=== PATIENT | male | born 1950 | race Two or more races ===

== ENCOUNTER 2020-03-04 16:44 | Outpatient (REF) | payer OTHER, SELFPAY | END 2020-03-04 16:45 | disposition home or self-care (01) | LOC: HO.LAB 16:44 | PROVIDERS: Visit Provider Internal Medicine | DX: Z20.822 Contact with and (suspected) exposure to COVID-19 (principal) | CPT/HCPCS: 36415; C9803; U0003 ==

== ENCOUNTER 2020-05-06 08:58 | Outpatient (REF) | payer OTHER, SELFPAY | END 2020-05-06 08:59 | disposition home or self-care (01) | LOC: HO.LAB 08:58 | PROVIDERS: Visit Provider Internal Medicine | DX: Z20.822 Contact with and (suspected) exposure to COVID-19 (principal) | CPT/HCPCS: 36415; C9803; U0003; U0005 ==

== ENCOUNTER 2020-05-20 09:24 | Outpatient (REF) | payer OTHER, SELFPAY ==
[2020-05-20 10:32] LABS: COVID-19 Test Negative (Negative)
== END 2020-05-20 09:25 | disposition home or self-care (01) ==
LOC: HO.LAB 09:24
PROVIDERS: Visit Provider Internal Medicine
DX: Z20.822 Contact with and (suspected) exposure to COVID-19 (principal)
CPT/HCPCS: 36415; 87635; C9803

== ENCOUNTER 2020-12-27 09:06 | Outpatient (REF) | payer OTHER, SELFPAY ==
[2020-12-27 10:01] LABS: COVID-19 Test Negative (Negative)
== END 2020-12-27 09:07 | disposition home or self-care (01) ==
LOC: HO.LAB 09:06
PROVIDERS: PCP Internal Medicine; Visit Provider Internal Medicine
DX: Z20.822 Contact with and (suspected) exposure to COVID-19 (principal)
CPT/HCPCS: 36415; 87635; C9803

== ENCOUNTER 2021-02-03 13:36 | Outpatient (REF) | payer OTHER, SELFPAY | END 2021-02-03 13:37 | disposition home or self-care (01) | LOC: HO.LAB 13:36 | PROVIDERS: Visit Provider Internal Medicine | DX: Z20.822 Contact with and (suspected) exposure to COVID-19 (principal) | CPT/HCPCS: C9803; U0003; U0005 ==

== ENCOUNTER → 2022-01-04 09:51 | Outpatient (BNVA) | payer OTHER, SELFPAY | PROVIDERS: PCP Internal Medicine; Visit Provider Surgery | DX: Z01.818 Encounter for other preprocedural examination (principal) | CPT/HCPCS: 99202 ==

== ENCOUNTER 2022-01-09 11:45 | Outpatient (REF) | payer OTHER, SELFPAY ==
[2022-01-09 12:30] LABS: COVID-19 Test Negative (Negative); IDNOW Serial# BCCEAD1C
== END 2022-01-09 11:46 | disposition home or self-care (01) ==
LOC: HO.LAB 11:45
PROVIDERS: Visit Provider Internal Medicine
DX: Z20.822 Contact with and (suspected) exposure to COVID-19 (principal)
CPT/HCPCS: 87635; C9803

== ENCOUNTER 2022-02-24 05:56 | Day surgery (SDC) | payer OTHER, SELFPAY ==
--- NOTE | 2022-02-23 10:17 | HO.ANESPROP2 ---
Documented by User: Parul Cerrato NP 02/23/22 10:17 HPI - Anesthesia Eval Consult details Narrative: 71yo M for Colonoscopy PMFSH Active Problems Active Problems: All Active Problems (Updated 12/08/21 @ 14:03 by Ty Major MD) Type 2 diabetes mellitus with hyperglycemia (Acute) Hypercholesterolemia (Acute) Hypertension (Acute) Colon cancer screening (Acute) Overweight (BMI 25.0-29.9) (Acute) Past Medical History Medical History History of tuberculosis Hypercholesterolemia Hypertension Type 2 diabetes mellitus with hyperglycemia Surgical History Surgical History H/O colonoscopy H/O toe surgery H/O wrist surgery History of surgery on arm Social History Social History Housing: House Alcohol intake: never Patient Tobacco Use Status: Former Tobacco user Quit Date: 1979 Tobacco use type: Cigarette Cigarette Packs Per Day: 1 Cigarettes Per Day: 20.0 Years Smoked: 14 Smoked in Last 30 Days: No e-Cigarette/Vaping Use: Never Used Second Hand Smoke Exposure: No Use of substances other than those prescribed or required for medical reasons: No Are you DNR?: No Advance Directives: No Advance Directives Information Provided: Yes Current occupational status: unemployed and retired Cognitive needs: No Hearing needs: No Vision needs: Yes Meds Allergies Allergy/AdvReac Type Severity Reaction Status Date / Time lactose [Lactose] Allergy Mild U Verified 02/24/22 06:55 Home Medications Medication Instructions Recorded Confirmed Last Taken Type glimepiride 2 mg tablet 2 mg PO DAILY 12/08/21 02/24/22 02/22/22 History simvastatin 20 mg tablet 20 mg PO QPM 12/08/21 02/24/22 Unknown History Exam Exam Date and Time: February 23, 2022 101 Assessment and Plan Assessment Anesthesia Assessment: Chart Reviewed Documented by User: Marah Verma MD 02/24/22 07:55 [facility] Past Medical History Medical History History of tuberculosis Hypercholesterolemia Hypertension Type 2 diabetes mellitus with hyperglycemia Functional capacity: independent ambulation Family History Family history of problems with anesthesia: No Surgical History Surgical History H/O colonoscopy H/O toe surgery H/O wrist surgery History of surgery on arm History of Problems with Anesthesia: No Social History Social History Housing: House Alcohol intake: never Patient Tobacco Use Status: Former Tobacco user Quit Date: 1979 Tobacco use type: Cigarette Cigarette Packs Per Day: 1 Cigarettes Per Day: 20.0 Years Smoked: 14 Smoked in Last 30 Days: No e-Cigarette/Vaping Use: Never Used Second Hand Smoke Exposure: No Use of substances other than those prescribed or required for medical reasons: No Are you DNR?: No Advance Directives: No Advance Directives Information Provided: Yes Current occupational status: unemployed and retired Cognitive needs: No Hearing needs: No Vision needs: Yes Meds Allergies Allergy/AdvReac Type Severity Reaction Status Date / Time lactose [Lactose] Allergy Mild U Verified 02/24/22 06:55 Home Medications Medication Instructions Recorded Confirmed Last Taken Type glimepiride 2 mg tablet 2 mg PO DAILY 12/08/21 02/24/22 02/22/22 History simvastatin 20 mg tablet 20 mg PO QPM 12/08/21 02/24/22 Unknown History Exam Airway Mallampati Class: II TM Dist: >3cm Neck ROM: Full Heart: RRR Lungs: CTA Assessment and Plan Final Anesthetic Review Family History of Problems with Anesthesia: No History of Problems with Anesthesia: No NPO: Yes ASA Class: II Final Preanesthetic Review: No Changes in Pt Med Stat, Meds/Allgs Chart Reviewed, Consent Obtained/Reviewed and Anes Risks/Benef Reviewed Patient Risk: Low Procedure Risk: Low Anesthetic Plan Anesthetic Plan: MAC: Disposition: Standard PACU
[2022-02-24 06:57] VITALS: BMI 26.4
[2022-02-24 07:13] VITALS: BP 134/77; PULSE 76; RESP 16; TEMP 36.6; O2SAT 99
[2022-02-24 07:14] LABS: Glucose, Whole Blood 186 mg/dL (60-115)
[2022-02-24] MEDS: Lactated Ringers 1,000 ML 100 ML IVCONT (07:14)
--- NOTE | 2022-02-24 07:18 | PC.NURSE ---
Patients dentures glued in mouth. Dr. Regan at bedside, okay with dentures going into Endo room for procedure.
--- NOTE | 2022-02-24 07:37 | MHC.SHP ---
Pre-Procedural Eval Section A Date of Service: 02/24/22 Section B Chief Complaint: screening Details of Present Illness: for screening colonoscopy, no GI complaints Relevant Family History (Specify if Yes): No Relevant Social History: None Present Medications: see Short Stay Collaborative assessment Medical History: Significant History (DM, HTN , hyperlipidemia) Allergies: Allergies Allergy/AdvReac Type Severity Reaction Status Date / Time lactose [Lactose] Allergy Mild U Verified 02/24/22 06:55 Review of Systems Sugical H&P ROS: Negative: Constitution, Cardiovascular, Respiratory, Neurological, Psychiatric, Hem-Onc, Allergic/Immunologic, Gastrointestinal, Genitourinary, Musculoskeletal, Integumentary, Endocrine and Eyes/Ears/Nose/Throat Exam Surgical H&P Exam: Normal: HEENT, Normal: Heart, Normal: Lungs, Normal: Extremities, Normal: Abdomen, Normal: Skin and Normal: Neurological Plan Diagnosis/Plan: Unchanged I have reviewed the history and physical and performed a pertinent physical examination on my patient. No changes have occurred unless specified. Time Spent With Patient Time: Total time managing care of this patient today ____ minutes.
--- NOTE | 2022-02-24 08:12 | W.PM.OPN ---
Operative Note Operative Note Date of Service: 02/24/22 Narrative: Preop diagnosis: Colon cancer screening Postop diagnosis: 1. Two small polyps, about 3 mm each, in the cecum, both removed with biopsy forceps 2. 8 mm polyp, in the rectum, moved with hot snare 3. 2 mm polyp in the rectum, removed with cold forceps 4. occasional diverticuli, transverse colon 5. prominent internal external hemorrhoids rocedure: Colonoscopy with polypectomy using cold forceps x3 and polypectomy using hot snare x1 Surgeon: Lex Marks MD The patient is a 71-year-old male referred for screening colonoscopy. Understood the technique of the procedure. He was aware of the risks, benefits, and alternatives. The patient was brought to the endoscopy suite and placed in left lateral decubitus position under monitored anesthesia care. A surgical time-out was done. A full digital rectal exam was done and this did not reveal any significant anal lesions except for prominent hemorrhoids. The tip of the Olympus colonoscope was gently introduced through the anal orifice advanced with insufflation all the way to the cecum. The cecum was intubated. The cecum was identified by visualization of the ileocecal valve as well as the appendiceal orifice. There were 2 small polyps in the cecum, both about 2 3 mm in size removed with multiple bites of the cold forceps. These were both placed in the same specimen jar. The scope was gradually withdrawn with careful examination of the entire colonic mucosa being done with scope withdrawal. There was occasional diverticuli in the transverse colon. The patient had adequate bowel prep so it was unlikely that any lesion may have been missed. The rectum was reached. There was note of an 8 mm polyp in the rectum, about 7 cm from the verge removed with hot snare. There was a small polyp, about 2-3 mm adjacent to this also removed with hot snare. Both of these were placed in the same specimen jar. There were note of internal external margins, prominent, in the anal canal. The scope was then withdrawn completely with desufflation The patient tolerated procedure well. There were no immediate complications. In view of the multiple polyps, I will probably recommend a repeat colonoscopy in the next 3-5 years.
[2022-02-24 08:19] VITALS: BP 91/59; PULSE 70; RESP 16; TEMP 36.9; O2SAT 97
[2022-02-24 08:49] VITALS: BP 120/80; PULSE 69; RESP 16; TEMP 36.5; O2SAT 98
--- NOTE | 2022-02-24 12:12 | HO.POSTANES ---
Post Anesthesia Evaluation Post Anesthesia Evaluation Vital Signs: Vital Signs Temp Pulse Resp BP Pulse Ox O2 Del Method 02/24/22 08:49 97.7 F 69 16 120/80 98 Room Air 02/24/22 08:19 98.5 F 70 16 91/59 L 97 Room Air 02/24/22 07:13 97.8 F 76 16 134/77 99 Room Air Anesthesia: Monitored Mental Status: Awake Pain Control: Satisfactory Nausea/Vomiting: None Hydration: Adequate Anesthesia-Related Issues: No Anes. Related Issues
== END 2022-02-24 10:00 | disposition home or self-care (01) ==
PROVIDERS: PCP Internal Medicine; Visit Provider Surgery
PROC: 0DJD8ZZ Inspection of Lower Intestinal Tract, Via Natural or Artificial Opening Endoscopic (ICD-10-PCS; CPT 45378; principal; 2022-02-24 07:30)
DX: Z12.11 Encounter for screening for malignant neoplasm of colon (principal); D12.0 Benign neoplasm of cecum; D12.8 Benign neoplasm of rectum; K57.30 Diverticulosis of large intestine without perforation or abscess without bleeding; K64.8 Other hemorrhoids; K64.4 Residual hemorrhoidal skin tags; I10 Essential (primary) hypertension; E78.00 Pure hypercholesterolemia, unspecified; E11.65 Type 2 diabetes mellitus with hyperglycemia; Z79.84 Long term (current) use of oral hypoglycemic drugs; Z79.899 Other long term (current) drug therapy; Z86.11 Personal history of tuberculosis; Z91.011 Allergy to milk products; Z87.891 Personal history of nicotine dependence
CPT/HCPCS: 45385; 45380; 82947; 88305

== ENCOUNTER → 2022-03-09 09:46 | Outpatient (BNVA) | payer OTHER, SELFPAY | PROVIDERS: PCP Internal Medicine; Visit Provider Physician Assistant Surgical | DX: Z12.11 Encounter for screening for malignant neoplasm of colon (principal); K57.30 Diverticulosis of large intestine without perforation or abscess without bleeding; D12.6 Benign neoplasm of colon, unspecified | CPT/HCPCS: 99212 ==

== ENCOUNTER 2022-04-27 09:04 | Outpatient (REF) | payer OTHER, SELFPAY ==
[2022-04-27 09:31] LABS: MANUAL DIFF FLAG NO
[2022-04-27 09:40] LABS: Basophils Percent Auto 0.5 % (0-2); Eosinophils Absolute Auto 0.1 X10*3/uL (0.0-0.4); Eosinophils Percent Auto 1.8 % (0-4); Hematocrit 38.3 % (42.0-52.0); Hemoglobin 13.7 g/dl (14.0-18.0); Imm Gran Abs Auto 0.01 X10*3/uL (0.00-0.03); Imm Gran Pct Auto 0.2 % (0.0-0.4); Lymphocytes Absolute Auto 1.8 X10*3/uL (1.2-4.9); Lymphocytes Percent Auto 31.3 % (20-40); Mean Corpuscular HGB Conc 35.8 g/dl (31.0-36.0); Mean Corpuscular Hemoglobin 31.1 pg (27.0-33.0); Mean Platelet Volume 9.8 fL (9.4-12.4); Monocytes Absolute Auto 0.5 X10*3/uL (0.1-1.2); Monocytes Percent Auto 8.7 % (2-11); Neutrophils Absolute Auto 3.3 x10*3/uL (2.0-8.3); Neutrophils Percent Auto 57.5 % (45-73); Platelet Count 161 X10*3/uL (160-400); Red Cell Distribution Width 11.9 % (11.0-16.0); White Blood Count 5.7 X10*3/uL (4.8-10.8)
[2022-04-27 10:56] LABS: Alanine Aminotransferase 31 U/L (0-40); Alkaline Phosphatase 50 U/L (39-117); Anion Gap 10 (12-20); Aspartate Amino Transferase 33 U/L (5-37); Bilirubin Total 1.2 mg/dL (0.0-1.0); Blood Urea Nitrogen 12 mg/dL (9-16); Calcium 8.9 mg/dL (8.4-10.2); Carbon Dioxide 31 mmol/L (22-29); Chloride 106 mmol/L (96-108); Cholesterol 170 mg/dL; Estimated Glomerular Filt Rate > 60; Glucose Random 166 mg/dL (60-115); HDL Cholesterol 38 mg/dL; LDL Cholesterol Calculated 119 mg/dl; Potassium 4.1 mmol/L (3.3-5.1); Sodium 143 mmol/L (135-145); Triglycerides 67 mg/dL
[2022-04-27 11:29] LABS: Folate 12.5 ng/mL (> or = 4.0); Free T4 (Free Thyroxine) 0.92 ng/dL (0.71-1.85); Prostate Specific Antigen Scr 1.79 ng/mL (<0.05-4.0); Thyroid Stimulating Hormone 0.56 uIU/mL (0.32-4.0); Vitamin B12 267 pg/mL (200-900)
[2022-04-27 12:08] LABS: Creatinine Urine 247.09 mg/dL; Microalbum/Creatinine Ratio Ur 3.6 ug/mg cr
== END 2022-04-27 09:05 | disposition home or self-care (01) ==
LOC: HO.LAB 09:04
PROVIDERS: PCP Internal Medicine; Visit Provider Internal Medicine
DX: Z12.5 Encounter for screening for malignant neoplasm of prostate (principal); E11.65 Type 2 diabetes mellitus with hyperglycemia; E78.00 Pure hypercholesterolemia, unspecified
CPT/HCPCS: 36415; 80053; 80061; 82043; 82607; 82746; 84153; 84439; 84443; 85025

== ENCOUNTER 2023-07-27 11:23 | Outpatient (AMB) | payer OTHER, SELFPAY ==
--- NOTE | 2023-07-27 11:25 | A.OFFPC_ITS ---
Vital Signs 07/27/23 11:26 Height 6 ft Weight 187 lb BMI 25.4 BP 122/80 Blood Pressure Location Lt brachial Position Sitting Pulse 83 Pulse Source Pulse Oximeter Pulse Oximetry (%) 97 Oxygen Delivery Method Room Air Intake Visit Reasons: f/u diabetes Allergies lactose [Lactose] Allergy (Mild, Verified 07/27/23 11:30) U Tobacco use date assessed: 07/27/23 Fall risk assessment: No Falls in past year Last assessed Fall Risk: 07/27/23 Dental Screening Dental Screen Date: 08/09/22 HPI f/u diabetes HPI Details 72-year-old male with uncontrolled diabe senthil mellitus hypertension hypercholesterolemia anemia coming in for follow-up. Last seen in 08/01/2022. Patient's last colonoscopy was 03/03/2022 tubular adenoma. Noted eye doctor's note 11/01/2022. PAtient has stopped the med for 2 months- left message on daughter's phone regarding my concern with the patient's uncontrolled diabetes, asking help for management. [facility] Medical History (Updated 07/27/23 @ 11:38 by Ty Major MD) History of tuberculosis Colon cancer screening Overweight (BMI 25.0-29.9) Hypercholesterolemia Hypertension Type 2 diabetes mellitus with hyperglycemia Surgical History H/O colonoscopy H/O toe surgery H/O wrist surgery History of surgery on arm Social History Housing: House Alcohol intake: never Patient Tobacco Use Status: Former Tobacco user Tobacco use type: Cigarette Cigarette Packs Per Day: 1 Cigarettes Per Day: 20.0 Years Smoked: 14 e-Cigarette/Vaping Use: Never Used Second Hand Smoke Exposure: No Current occupational status: unemployed and retired Cognitive needs: No Hearing needs: No Vision needs: Yes Questionnaire Thrive Questionnaire Date Thrive assessed: 07/27/23 I am a: Patient What is your living situation today?: I have a steady place to live Within the past 12 months, did the food you bought not last and you didn't have the money to get more?: Never true Within the past 12 months, did you worry whether your food would run out before you got money to buy more?: Never true THRIVE Score: 0 AUDIT C Alcohol Use Questionnaire (AUDIT-C) 1. How often do you have a drink containing alcohol?: Never 3. How often do you have six or more drinks on one occasion?: Never Total Score: 0 ABEL-7 AMB Questionnaire ABEL-7 Date ABEL - 7 assessed: 05/03/22 Source: Developed by Drs. Junior Royal, Makayla Walker, Higinio Cobb and colleagues, with an educational stephen from [employer]. Physical exam (Primary Care) Vital Signs: Last Vital Signs Pulse 83 07/27/23 11:26 BP 122/80 07/27/23 11:26 Pulse Ox 97 07/27/23 11:26 Oxygen Delivery Method Room Air 07/27/23 11:26 BMI result Body Mass Index 25.4 Tobacco/Smoking Status: Tobacco use Status Tobacco use date assessed 07/27/23 07/27/23 11:30 Patient Tobacco Use Status Former Tobacco user 07/27/23 11:30 Tobacco use type Cigarette 07/27/23 11:30 e-Cigarette/Vaping Use Never Used 07/27/23 11:30 Thrive Assessment: Date of Thrive Assessment Date Thrive assessed 07/27/23 07/27/23 11:30 Const General: alert; No acute distress Eyes Conjunctivae: conjunctivae normal Resp Auscultation: clear to auscultation bilaterally Cardio Rate: regular rate Rhythm: regular rhythm GI Inspection: Yes normal to inspection Extrem General: Yes normal to inspection and No edema Results AMB Hemoglobin A1c AMB Hemoglobin A1c 11.1 % Last Edit by NNAMDI Schumacher on 07/27/23 11:37 Assessment and Plan Assessment & Plan (1) Type 2 diabetes mellitus with hyperglycemia: Comment: 2020 eye [facility], My EYEDR 10/2022 Code(s): E11.65 - Type 2 diabetes mellitus with hyperglycemia Plan: Decrease the amount of carbohydrate intake, pasta, bread, rice and potatoes are all sugar and that is aside from all the sweet stuff, remember that fruits are good but they are Sweet also. Hemoglobin A1c goal of less than 7.0 on gl imepiride 2 mg once a day metformin 500 mg twice a day. Patient left message with daughter to ask for help in diabetes management. Because of irregular eating habits glimepiride taken off and was started on Jardiance. (2) Hypertension: Code(s): I10 - Essential (primary) hypertension Plan: Continue with blood pressure medication. Decrease salt intake and exercise takes lisinopril hydrochlorothiazide 20/12.5 mg once a day (3) Hypercholesterolemia: Code(s): E78.00 - Pure hypercholesterolemia, unspecified Plan: Avoid fried foods, chicken skin, eggs, butter margarine, pastries and meat. Be it pork or beef they have a lot of cholesterol LDL goal of less than 100 and triglyceride of less than 150. Patient is advised to get blood work done (4) Anemia: Code(s): D64.9 - Anemia, unspecified Plan: Advised to get blood work for follow-up (5) Vitamin B12 deficiency: Code(s): E53.8 - Deficiency of other specified B group vitamins Plan: Advised to get the blood work done Orders: Orders AMB Hemoglobin A1c Today E11.65 - Type 2 diabetes mellitus with hyperglycemia Creatinine Urine Today E11.65 - Type 2 diabetes mellitus with hyperglycemia Microalbumin, Random (w Creat) Today E11.65 - Type 2 diabetes mellitus with hyperglycemia Medications: New simvastatin 20 mg PO QPM 90 tabs 1RF E11.65 - Type 2 diabetes mellitus with hyperglycemia empagliflozin (Jardiance) 10 mg PO DAILY 30 tabs 4RF E11.65 - Type 2 diabetes mellitus with hyperglycemia Refilled metformin 500 mg PO BID 180 tabs 1RF E11.65 - Type 2 diabetes mellitus with hyperglycemia Coding Level of Care Code Est Pt Level 4 (85936) Complex EM visit Add On G2211 Diagnoses Type 2 diabetes mellitus with hyperglycemia E11.65 Hypertension I10 Hypercholesterolemia E78.00 Anemia D64.9 Vitamin B12 deficiency E53.8
[2023-07-27 11:26] VITALS: BP 122/80; PULSE 83; O2SAT 97; BMI 25.4
== END 2023-07-27 11:55 | disposition home or self-care (01) ==
PROVIDERS: PCP Internal Medicine; Visit Provider Internal Medicine
DX: E11.65 Type 2 diabetes mellitus with hyperglycemia (principal); I10 Essential (primary) hypertension; E78.00 Pure hypercholesterolemia, unspecified; D64.9 Anemia, unspecified; E53.8 Deficiency of other specified B group vitamins
CPT/HCPCS: 83036; 99214; G2211

== ENCOUNTER 2023-08-28 08:28 | Outpatient (REF) | payer OTHER, SELFPAY ==
[2023-08-28 08:43] LABS: MANUAL DIFF FLAG NO
[2023-08-28 09:21] LABS: Basophils Percent Auto 0.7 % (0-2); Eosinophils Absolute Auto 0.1 X10*3/uL (0.0-0.4); Eosinophils Percent Auto 1.2 % (0-4); Hematocrit 41.5 % (42.0-52.0); Hemoglobin 14.9 g/dl (14.0-18.0); Imm Gran Abs Auto 0.01 X10*3/uL (0.00-0.03); Imm Gran Pct Auto 0.2 % (0.0-0.4); Immature Retic Fraction 8.8 % (2.3-13.4); Lymphocytes Absolute Auto 1.9 X10*3/uL (1.2-4.9); Lymphocytes Percent Auto 32.3 % (20-40); Mean Corpuscular HGB Conc 35.9 g/dl (31.0-36.0); Mean Corpuscular Hemoglobin 31.6 pg (27.0-33.0); Mean Corpuscular Volume 88.1 fL (80.0-98.0); Mean Platelet Volume 10.2 fL (9.4-12.4); Monocytes Absolute Auto 0.5 X10*3/uL (0.1-1.2); Monocytes Percent Auto 8.5 % (2-11); Neutrophils Absolute Auto 3.4 x10*3/uL (2.0-8.3); Neutrophils Percent Auto 57.1 % (45-73); Platelet Count 179 X10*3/uL (160-400); Red Blood Count 4.71 X10*6/uL (4.60-5.80); Red Cell Distribution Width 11.9 % (11.0-16.0); Reticulocyte Percent 1.3 % (0.5-1.8); Reticulocytes Absolute 0.063 X10*6/uL (0.026-0.095); White Blood Count 5.9 X10*3/uL (4.8-10.8)
[2023-08-28 09:36] LABS: Appearance Urine Clear; Color Urine Yellow; Glucose Urine UA Negative (Negative); Leukocyte Esterase Urine Negative (Negative); Nitrite Urine Negative (Negative); Specific Gravity - Urine 1.015 (1.005-1.025); Urine Blood Negative (Negative); Urine Ketones Negative (Negative); Urine Protein Negative (Neg-Trace)
[2023-08-28 09:56] LABS: Creatinine Urine 157.44 mg/dL; Microalbumin Urine < 5.0 mg/L
[2023-08-28 10:08] LABS: Alanine Aminotransferase 26 U/L (0-40); Albumin Level 4.4 g/dL (3.5-5.0); Alkaline Phosphatase 55 U/L (39-117); Anion Gap 12 (12-20); Aspartate Amino Transferase 17 U/L (5-37); Bilirubin Total 0.7 mg/dL (0.0-1.0); Blood Urea Nitrogen 13 mg/dL (9-16); Calcium 9.6 mg/dL (8.4-10.2); Carbon Dioxide 30 mmol/L (22-29); Chloride 101 mmol/L (96-108); Cholesterol 170 mg/dL (<200); Estimated Glomerular Filt Rate > 60; Glucose Random 201 mg/dL (60-115); HDL Cholesterol 36 mg/dL (>40); Iron 131 mcg/dL (45-160); LDL Cholesterol Calculated 110 mg/dL (<100); Percent Iron Saturation 45 % (15-50); Potassium 4.1 mmol/L (3.3-5.1); Sodium 139 mmol/L (135-145); Total Iron Binding Capacity 294 mcg/dL (228-428); Total Protein 6.8 g/dL (6.5-8.0); Triglycerides 124 mg/dL (<150); Unsaturated Iron Binding 163 ug/dL
[2023-08-28 10:14] LABS: Ferritin 276 ng/mL (20-250)
[2023-08-28 10:46] LABS: Folate 12.3 ng/mL (> or = 4.0); Vitamin B12 364 pg/mL (200-900)
== END 2023-08-28 08:29 | disposition home or self-care (01) ==
LOC: HO.LAB 08:28
PROVIDERS: PCP Internal Medicine; Visit Provider Internal Medicine
DX: D64.9 Anemia, unspecified (principal); E78.00 Pure hypercholesterolemia, unspecified; E11.65 Type 2 diabetes mellitus with hyperglycemia
CPT/HCPCS: 36415; 80053; 80061; 81003; 82570; 82607; 82728; 82746; 83540; 85025; 85045

== ENCOUNTER 2023-10-10 15:11 | Outpatient (AMB) | payer OTHER, SELFPAY ==
[2023-10-10 15:12] VITALS: BP 140/86; PULSE 103; O2SAT 96; BMI 25.4
--- NOTE | 2023-10-10 15:12 | A.OFFPC_ITS ---
Vital Signs 10/10/23 15:12 10/10/23 16:00 Height 6 ft Weight 187 lb BMI 25.4 BP 140/86 H 138/82 Blood Pressure Location Lt brachial Lt brachial Position Sitting Sitting Pulse 103 H Pulse Source Pulse Oximeter Pulse Oximetry (%) 96 Oxygen Delivery Method Room Air Intake Visit Reasons: annaul exam Intake Note: Patient is here today for a physical. Blower Feeder Dyed Raw Stock Required: No Allergies lactose [Lactose] Allergy (Mild, Verified 10/10/23 15:12) U Medication List - Last Reconciled 10/10/23 by Telma De La Torre PA-C blood sugar diagnostic (FreeStyle Lite Strips) As directed check the BS QD blood sugar diagnostic (OneTouch Ultra Test strips) As directed once per day empagliflozin (Jardiance) 10 mg PO DAILY lancets (OneTouch Delica Plus Lancet) As directed once per day lisinopril-hydrochlorothiazide 20-12.5 mg 1 tab PO DAILY metformin 500 mg PO BID simvastatin 20 mg PO QPM Tobacco use date assessed: 07/27/23 Fall risk assessment: No Falls in past year Last assessed Fall Risk: 10/10/23 Dental Screening Dental Screen Date: 10/10/23 HPI annaul exam HPI Details 72-year-old male with uncontrolled diabe senthil mellitus hypertension hypercholesterolemia anemia coming in for annual exam. Colonoscopy February 2022 with tubular adenoma follow up in 5 years. Regularly follows with eye doctor. Patient states he has been doing generally well and has no acute concerns today. He does note improvement in his sugars since he has cut out ice cream, soda, and juices. He also mentions his blood pressures have been normal at home. His job is requiring a TB test. 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 [facility] Medical History History of tuberculosis Colon cancer screening Overweight (BMI 25.0-29.9) Hypercholesterolemia Hypertension Type 2 diabetes mellitus with hyperglycemia Surgical History H/O colonoscopy H/O toe surgery H/O wrist surgery History of surgery on arm Social History Housing: House Alcohol intake: never Patient Tobacco Use Status: Former Tobacco user Tobacco use type: Cigarette Cigarette Packs Per Day: 1 Cigarettes Per Day: 20.0 Years Smoked: 14 e-Cigarette/Vaping Use: Never Used Second Hand Smoke Exposure: No Current occupational status: unemployed and retired Cognitive needs: No Hearing needs: No Vision needs: Yes Questionnaire PHQ-9 Over the last 2 weeks, how often have you been bothered by any of the following problems? 1. Little interest or pleasure in doing things: not at all 2. Feeling down, depressed, or hopeless: not at all 3. Trouble falling or staying asleep, or sleeping too much: not at all 4. Feeling tired or having little energy: not at all 5. Poor appetite or overeating: not at all 6. Feeling bad about yourself - or that you are a failure or have let yourself or your family down: not at all 7. Trouble concentrating on things, such as reading the newspaper or watching television: not at all 8. Moving or speaking so slowly that other people could have noticed. Or the opposite - being so fidgety or restless that you have been moving around a lot more than usual: not at all 9. Thoughts that you would be better off or of hurting yourself in some way: not at all Total score: 0 Depression Screening Interpretation: Negative Depression Screening Done: Yes 79345 - PHQ-9 Billing: Yes Source: Developed by Drs. Junior Royal, Makayla Walker, Higinio Cobb and colleagues, with an educational stephen from [employer]. Thrive Questionnaire Date Thrive assessed: 07/27/23 I am a: Patient What is your living situation today?: I have a steady place to live Within the past 12 months, did the food you bought not last and you didn't have the money to get more?: I choose not to answer this question Within the past 12 months, did you worry whether your food would run out before you got money to buy more?: I choose not to answer this question Do you have trouble paying for medicines?: No Do you have trouble getting transportation to medical appointments?: No Do you have trouble paying your heating and electricity bill?: No Do you have trouble taking care of your child, family member or friend?: No Do you have trouble with day-to-day activities such as bathing, preparing meals, shopping, managing finances, etc.?: No Are you currently unemployed and looking for a job?: No Are you interested in more education?: No Please select the resources that you would like help with: None Currently or been in a relationship where the following occur: I choose not to answer THRIVE Score: 0 AUDIT C Alcohol Use Questionnaire (AUDIT-C) 1. How often do you have a drink containing alcohol?: Never 3. How often do you have six or more drinks on one occasion?: Never Total Score: 0 ABEL-7 AMB Questionnaire ABEL-7 Date ABEL - 7 assessed: 10/10/23 Feeling nervous, anxious, or on edge: 0 = Not at all Not being able to stop or control worryin = Not at all Worrying too much about different things: 0 = Not at all Trouble relaxin = Not at all Being so restless that it is hard to sit still: 0 = Not at all Becoming easily annoyed or irritable: 0 = Not at all Feeling afraid as if something awful might happen: 0 = Not at all Total ABEL-7 score (0-4 normal; 5-9 mild; 10-14 moderate; 15-21 severe): 0 Source: Developed by Drs. Junior Royal, Makayla Walker, Higinio Cobb and colleagues, with an educational stephen from [employer]. Review of Systems Const Denies body aches, Denies fatigue, Denies fever(s), Denies frequent falls, Denies headache(s) and Denies weakness Eyes Reports no additional complaints and Denies change in vision ENT Denies dysphagia, Denies dizziness, Denies facial pain, Denies headache(s), Denies nasal congestion and Denies odynophagia Card Denies chest pain, Denies syncope, Denies irregular heart rhythm, Denies leg edema, Denies lightheadedness and Denies dyspnea Resp Denies cough and Denies dyspnea GI Reports constipation (Occasional), Denies dysphagia, Denies dyspepsia, Denies diarrhea, Denies nausea, Denies odynophagia and Denies vomiting Details: Has noticed increase in urination since starting Jardiance Denies dysuria, Denies urinary frequency, Denies urinary hesitancy and Denies urinary urgency Musc Denies back pain and Denies myalgias Skin/Breast Reports system reviewed and no additional complaints, except as documented Neuro Denies dizziness, Denies syncope, Denies frequent falls, Denies headache(s) and Denies weakness Psych Reports no additional complaints Endo Denies fatigue Physical exam (Primary Care) Vital Signs: Last Vital Signs Pulse 103 H 10/10/23 15:12 BP 140/86 H 10/10/23 15:12 Pulse Ox 96 10/10/23 15:12 Oxygen Delivery Method Room Air 10/10/23 15:12 BMI result Body Mass Index 25.4 Tobacco/Smoking Status: Tobacco use Status Tobacco use date assessed 07/27/23 10/10/23 15:13 Patient Tobacco Use Status Former Tobacco user 10/10/23 15:13 Tobacco use type Cigarette 10/10/23 15:13 e-Cigarette/Vaping Use Never Used 10/10/23 15:13 PHQ-9: PHQ-9 Score PHQ-9: Total score 0 10/10/23 15:18 Depression Screening Interpretation: Negative Thrive Assessment: Date of Thrive Assessment Date Thrive assessed 07/27/23 10/10/23 15:13 Currently or been in a relationship where the following occur: I choose not to answer Const General: cooperative, healthy appearing, comfortable and no acute distress Orientation/consciousness: patient oriented x3 HENMT Head: Yes normocephalic Ears: hearing grossly normal bilaterally, external ears normal, TM's normal bilaterally and EAC's normal General nose exam: Normal external nose present Face and sinus: Yes normal facial exam and Yes sinuses nontender Mouth: Normal oral and palatal mucosa present and tongue normal Throat: Yes posterior oropharynx normal Eyes General: appearance normal, both eyes and all related structures Conjunctivae: conjunctivae normal Pupils: Equal, round and reactive pupils present EOM: EOMs intact bilaterally and No Nystagmus present Neck Neck: Yes normal visual inspection, Yes full ROM and Yes no lymphadenopathy Chest Chest palpation & inspection: normal inspection of the chest Resp Effort & Inspection: normal respiratory effort Auscultation: clear to auscultation bilaterally, no crackles, no rales, no rhonchi, no wheezes and breath sounds present Cardio Rate: regular rate Rhythm: regular rhythm Peripheral pulses: radial pulses present and dorsalis pedis present GI Inspection: Yes normal to inspection and No Abdominal wall edema Palpation (GI): Soft to palpation, not firm and nontender Auscultation: normal bowel sounds Rectal Exam - Male: Yes deferred General: Yes no CVA tenderness Back/Spine/Pelvis Back: no CVA tenderness Skin General skin exam: no rashes or lesions noted Neuro General: patient oriented x3 Cranial nerves: Yes Equal, round and reactive pupils present, Yes Midline tongue present, Yes Ability to bilaterally elevate shoulders present and No Nystagmus present Gait exam (Neuro): Normal gait present Extrem General: Yes normal to inspection, Yes full ROM, No no pedal edema and No edema Psych Speech and movement: Normal speech and movement present Affect: normal affect Insight: Good insight present (Psych) Judgement: Good judgement present (Psych) Assessment and Plan Assessment & Plan (1) Hypertension: Code(s): I10 - Essential (primary) hypertension Plan: Blood pressure at goal when retaken today. Continue on lisinopril/hydrochlorothiazide. Blood pressures at home have been normal continue to monitor. Reduce the amount of salt in your diet. (2) Hypercholesterolemia: Code(s): E78.00 - Pure hypercholesterolemia, unspecified Plan: Cholesterol elevated on last labs we will repeat in 3 months. Continue on simvastatin. Avoid foods that are high in cholesterol such as red meat, fried foods, eggs and baked goods. Triglyceride goal of less than 150 and LDL goal of less than 100 (3) Type 2 diabetes mellitus with hyperglycemia: Comment: 2020 eye Meenakshi Hawkins EYEDR 10/2022 Code(s): E11.65 - Type 2 diabetes mellitus with hyperglycemia Plan: Patient has been monitoring blood sugars at home which have been mainly within normal limits however does some times have elevated blood sugars. Presently on metformin and Jardiance. Decrease the amount of carbohydrates such as pasta, bread, rice, and potatoes and limit the amount of sweets. Although fruits are generally healthy they should be eaten in moderation as they are still high in sugar. Hemoglobin A1c goal of less than 7%. (4) Screening-pulmonary TB: Code(s): Z11.1 - Encounter for screening for respiratory tuberculosis Plan: Patient is requiring screening for TB for his employer. He has history of a positive PPD and was told he requires a chest x-ray. Chest x-ray ordered today. (5) Polyuria: Code(s): R35.89 - Other polyuria Plan: Patient states he has been urinating more since starting Jardiance. Discussed that this could be a normal side effect of the medication however we will order for urinalysis to evaluate further. (6) Annual physical exam: Code(s): Z00.00 - Encounter for general adult medical examination without abnormal findings Plan: Patient is up-to-date on all recommended routine screenings and vaccinations for his age. Blood work is also up-to-date. Continue to follow up yearly. Plan This note was constructed using voice recognition software. While every effort has been made to ensure accuracy and turn out worker, still areas may have been included sometimes these areas may affect the content or meeting of the given symptoms. Total time spent caring for the patient today was 30 minutes. This includes time spent before the visit reviewing the chart, time spent during the visit, and time spent after the visit and documentation. Orders: Orders UA CC w/rflx Micro + Cult Today R35.89 - Other polyuria XR chest 2V Today Z11.1 - Encounter for screening for respiratory tuberculosis Coding Level of Care Code Est Pt Prev Care >65y(81641) Diagnoses Hypertension I10 Hypercholesterolemia E78.00 Type 2 diabetes mellitus with hyperglycemia E11.65 Screening-pulmonary TB Z11.1 Polyuria R35.89 Annual physical exam Z00.00
[2023-10-10 16:00] VITALS: BP 138/82
== END 2023-10-10 15:45 | disposition home or self-care (01) ==
PROVIDERS: PCP Internal Medicine
DX: I10 Essential (primary) hypertension (principal); E78.00 Pure hypercholesterolemia, unspecified; E11.65 Type 2 diabetes mellitus with hyperglycemia; Z11.1 Encounter for screening for respiratory tuberculosis; R35.89 Other polyuria; Z00.00 Encounter for general adult medical examination without abnormal findings
CPT/HCPCS: 99397

== ENCOUNTER 2023-10-10 16:05 | Outpatient (REF) | payer OTHER, SELFPAY ==
--- NOTE | ~2023-10-10 | XR_ITS ---
EXAMINATION: XR CHEST CLINICAL INFORMATION: Respiratory tuberculosis, patient states getting TB test done for job. COMPARISON: None available. TECHNIQUE: 3 views of the chest. FINDINGS: There is no gross pneumothorax. Heart size is normal. Moderate degenerative changes in the thoracic spine. No pleural effusion. Lucency in the left retrocardiac region along the medial aspect of the left hemidiaphragm of indeterminate etiology, possibly related to a hiatal hernia. CT scan of the chest could be considered for further evaluation. XR/XR chest 2V IMPRESSION: Lucency in the left retrocardiac region along the medial aspect of the left hemidiaphragm of indeterminate etiology, possibly related to a hernia. CT scan of the chest could be considered for further evaluation. Electronically signed by: Alis Johnson MD 10/31/2023 10:44 AM EDT RP
== END 2023-10-10 16:06 | disposition home or self-care (01) ==
LOC: HO.XRAY 16:05
PROVIDERS: PCP Internal Medicine
DX: Z11.1 Encounter for screening for respiratory tuberculosis (principal)
CPT/HCPCS: 71046

== ENCOUNTER 2023-10-29 10:27 | Outpatient (AMB) | payer OTHER, SELFPAY ==
[2023-10-29 10:30] VITALS: BP 124/70; PULSE 71; BMI 25.7
--- NOTE | 2023-10-29 10:30 | A.OFFVIS_ITS ---
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 Worker Most recent HbA1c: 7.9%, 10/29/2023 Random Glucose- 228 mg/dL, Today Briquette Maker Required: No Accompanied by: Self / Same As Patient Allergies lactose [Lactose] Allergy (Mild, Verified 10/29/23 10:31) U Medication List - Last Reconciled 10/29/23 by Kerrie Trinidad PA-C blood sugar diagnostic (FreeStyle Lite Strips) As directed check the QD blood sugar diagnostic (OneTouch Ultra Test strips) As directed once per day lancets (OneTouch Delica Plus Lancet) As directed once per day lisinopril-hydrochlorothiazide 20-12.5 mg 1 tab PO DAILY metformin 500 mg PO BID simvastatin 20 mg PO QPM HPI HPI T2DM/CONFIRMED: Details: Patient is a 72-year-old male with a significant past medical history of hypertension, hyperlipidemia and type 2 diabetes presenting today to establish care and endocrinology for his diabetes. Endo: States that he was 1st diagnosed with diabetes around 2013. His A1c this summer was 11.5. His current A1c is 7.9. He is currently on metformin 500 mg twice a day. -He did not tolerate Jardiance He states his blood sugar readings at home range from 120-220. He is compliant with his medication and checking his blood sugars. 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 He states that he has lost some weight with the increased exercise. He has also been careful in avoiding sugar as much as possible. When he was initially diagnosed he did have diabetic Education and declines any additional Education today. 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 Hypoglycemia- denies, states he has never really noticed it low. 1 x in 10 years he felt shaky and took candy and fixed it. he states he knows how to fix . Hyperglycemia- polydispsia. Blood sugars are sometimes around 200. Family history- no hx of dm. Seeing eye services next month. CV: His blood pressure today in the office is 124/70. He is currently on lisinopril/hydrochlorothiazide 20/12.5 mg. Cholesterol controlled with simvastatin 20 mg. [facility] Medical History History of tuberculosis Colon cancer screening Overweight (BMI 25.0-29.9) Hypercholesterolemia Hypertension Type 2 diabetes mellitus with hyperglycemia Surgical History H/O colonoscopy H/O toe surgery H/O wrist surgery History of surgery on arm Social History Housing: House Alcohol intake: never Patient Tobacco Use Status: Former Tobacco user Tobacco use type: Cigarette Cigarette Packs Per Day: 1 Cigarettes Per Day: 20.0 Years Smoked: 14 e-Cigarette/Vaping Use: Never Used Second Hand Smoke Exposure: No Current occupational status: unemployed and retired Cognitive needs: No Hearing needs: No Vision needs: Yes Physical Exam Vital Signs: Last Vital Signs Pulse 71 10/29/23 10:30 BP 124/70 10/29/23 10:30 BMI result Body Mass Index 25.7 Const Orientation/consciousness: patient oriented x3 Neck Neck: Yes no lymphadenopathy Thyroid: Thyroid normal Carotids: no bruits Resp Auscultation: clear to auscultation bilaterally Cardio Rate: regular rate Rhythm: regular rhythm Heart sounds: S1 normal heart sound present and S2 normal heart sound present Peripheral pulses: dorsalis pedis present Neuro General: patient oriented x3, gait normal and no focal motor deficits Extrem Other: Monofilament sensation intact bilaterally. Vibratory sensation intact bilaterally. Skin intact. 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 General: Yes normal to inspection Results AMB Hemoglobin A1c AMB Hemoglobin A1c 7.9 % Last Edit by NNAMDI Muhammad on 10/29/23 10:47 Results Reviewed Results Reviewed: Laboratory Tests 07/27/23 08/28/23 08/28/23 11:20 08:41 08:45 Sodium 139 Potassium 4.1 Chloride 101 Carbon Dioxide 30 H Anion Gap 12 BUN 13 Creatinine 1.04 Estimated GFR > 60 Random Glucose 201 H Hgb A1c (Clinic) 11.1 H Calcium 9.6 D LDL Cholesterol, Calc 110 H Urine Creatinine 157.44 Urine Microalbumin < 5.0 Microalb/Creat Ratio TNP Assessment & Plan Assessment & Plan (1) Type 2 diabetes mellitus with hyperglycemia: Comment: 2020 eye Shruthi, Meenakshi EYEDR 10/2022 Code(s): E11.65 - Type 2 diabetes mellitus with hyperglycemia Category: Medical Qualifiers: Diabetes mellitus intermediate accountant insulin use: without fdc use Qualified Code(s): E11.65 - Type 2 diabetes mellitus with hyperglycemia Plan: We did spend 60 minutes today in [id number] time discussing diabetes, the pathophysiology of diabetes, complications associated with diabetes including blindness, risk of amputation, infection, stroke, heart attack, kidney disease etc.. We discussed signs and symptoms of hyper and hypoglycemia and signs that would require emergent medical treatment. Increase metformin to 1000 mg twice a day. Labs ordered today. Advised to follow up 3 months. Sooner if needed. Patient understands and agrees with the plan. (2) Hypertension: Code(s): I10 - Essential (primary) hypertension Category: Medical Qualifiers: Hypertension type: primary hypertension Qualified Code(s): I10 - Essential (primary) hypertension Plan: WNL. Continue current regimen (3) Hypercholesterolemia: Code(s): E78.00 - Pure hypercholesterolemia, unspecified Category: Medical Plan: Reviewed lipids. Advised to continue current regimen. Orders: Orders AMB Hemoglobin A1c Today E11.65 - Type 2 diabetes mellitus with hyperglycemia C Peptide Today E11.65 - Type 2 diabetes mellitus with hyperglycemia, E78.00 - Pure hypercholesterolemia, unspecified, I10 - Essential (primary) hypertension Hemoglobin A1c 3 Months E11.65 - Type 2 diabetes mellitus with hyperglycemia, E78.00 - Pure hypercholesterolemia, unspecified, I10 - Essential (primary) hypertension Microalbumin, Random (w Creat) 3 Months E11.65 - Type 2 diabetes mellitus with hyperglycemia, E78.00 - Pure hypercholesterolemia, unspecified, I10 - Essential (primary) hypertension Glutamic acid decarboxylase Ab Today E11.65 - Type 2 diabetes mellitus with hyperglycemia, E78.00 - Pure hypercholesterolemia, unspecified, I10 - Essential (primary) hypertension Islet Cell Antibody Scrn/Titer Today E11.65 - Type 2 diabetes mellitus with hyperglycemia, E78.00 - Pure hypercholesterolemia, unspecified, I10 - Essential (primary) hypertension Comprehensive Met. Panel 3 Months E11.65 - Type 2 diabetes mellitus with hyperglycemia, E78.00 - Pure hypercholesterolemia, unspecified, I10 - Essential (primary) hypertension Medications: New metformin 1,000 mg PO BID 90 days 180 tabs 2RF Discontinued metformin Discontinued Reason: Doctor's Order 500 mg PO BID 180 tabs 1RF E11.65 - Type 2 diabetes mellitus with hyperglycemia Coding Level of Care Code New Pt Level 5 (29273) Complex EM visit Add On [id number] Diagnoses Type 2 diabetes mellitus with hyperglycemia, without long-term current use of insulin E11.65 Diabetes mellitus intermediate accountant insulin use: without fdc use Primary hypertension I10 Hypertension type: primary hypertension Hypercholesterolemia E78.00
[2023-10-29 10:43] LABS: Glucose, Whole Blood 228 mg/dL (60-115)
== END 2023-10-29 11:04 | disposition home or self-care (01) ==
PROVIDERS: PCP Internal Medicine; Visit Provider Physician Assistant
DX: E11.65 Type 2 diabetes mellitus with hyperglycemia (principal); I10 Essential (primary) hypertension; E78.00 Pure hypercholesterolemia, unspecified

== ENCOUNTER → 2023-10-29 10:27 | Outpatient (BNVA) | payer OTHER, SELFPAY | PROVIDERS: PCP Internal Medicine; Visit Provider Physician Assistant | DX: E11.65 Type 2 diabetes mellitus with hyperglycemia (principal); I10 Essential (primary) hypertension; E78.00 Pure hypercholesterolemia, unspecified; Z79.84 Long term (current) use of oral hypoglycemic drugs | CPT/HCPCS: 82947; 83036; 99202 ==

== ENCOUNTER 2023-11-14 11:33 | Outpatient (REF) | payer OTHER, SELFPAY ==
[2023-11-14 13:04] LABS: Appearance Urine Clear; Color Urine Yellow; Glucose Urine UA 100 mg/dL (Negative); Leukocyte Esterase Urine Negative (Negative); Nitrite Urine Negative (Negative); Specific Gravity - Urine 1.015 (1.005-1.025); Urine Blood Negative (Negative); Urine Ketones Negative (Negative); Urine Protein Negative (Neg-Trace)
[2023-11-14 13:24] LABS: Alanine Aminotransferase 19 U/L (0-40); Albumin Level 4.3 g/dL (3.5-5.0); Alkaline Phosphatase 55 U/L (39-117); Anion Gap 13 (12-20); Aspartate Amino Transferase 16 U/L (5-37); Bilirubin Total 0.7 mg/dL (0.0-1.0); Blood Urea Nitrogen 13 mg/dL (9-16); Calcium 9.8 mg/dL (8.4-10.2); Carbon Dioxide 31 mmol/L (22-29); Chloride 101 mmol/L (96-108); Estimated Glomerular Filt Rate > 60; Glucose Random 152 mg/dL (60-115); Potassium 3.8 mmol/L (3.3-5.1); Sodium 141 mmol/L (135-145); Total Protein 6.9 g/dL (6.5-8.0)
[2023-11-14 13:29] LABS: Creatinine Urine 87.57 mg/dL
== END 2023-11-14 11:34 | disposition home or self-care (01) ==
LOC: HO.LAB 11:33
PROVIDERS: PCP Internal Medicine
DX: Z00.00 Encounter for general adult medical examination without abnormal findings (principal); E11.65 Type 2 diabetes mellitus with hyperglycemia; R35.89 Other polyuria
CPT/HCPCS: 36415; 80053; 81003; 82570

== ENCOUNTER 2023-12-03 09:17 | Outpatient (AMB) | payer OTHER, SELFPAY ==
[2023-12-03 09:21] VITALS: BP 158/80; PULSE 73; O2SAT 98; BMI 25.8
--- NOTE | 2023-12-03 09:21 | MHC.PC.OV ---
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 Allergies lactose [Lactose] Allergy (Mild, Verified 12/03/23 09:24) U Medication List - Last Reconciled 12/03/23 by Telma De La Torre PA-C blood sugar diagnostic (FreeStyle Lite Strips) As directed check the BS QD blood sugar diagnostic (OneTouch Ultra Test strips) As directed once per day lancets (OneTouch Delica Plus Lancet) As directed once per day lisinopril-hydrochlorothiazide 20-12.5 mg 1 tab PO DAILY metformin 1,000 mg PO BID 90 days simvastatin 20 mg PO QPM Tobacco use date assessed: 07/27/23 Fall risk assessment: No Falls in past year Last assessed Fall Risk: 12/03/23 Dental Screening Dental Screen Date: 10/10/23 HPI follow up 3 months a1c HPI Details 73-year-old male with past medical history of uncontrolled diabetes mellitus, hypertension, hypercholesterolemia, anemia last seen September 2023 coming in for follow up on diabetes.? Patient was seen by endocrinology October 2023 increase metformin to 1000 mg twice daily and follow up in 3 months. Patient states he is feeling generally well and has no acute concerns today. He states he has been taking his metformin inconsistently and will occasionally have 500-1,000 mg but his blood sugars have been mostly normal. FOR[facility]LY [facility], LATER [facility] Medical History History of tuberculosis Colon cancer screening Overweight (BMI 25.0-29.9) Hypercholesterolemia Hypertension Type 2 diabetes mellitus with hyperglycemia Surgical History H/O colonoscopy H/O toe surgery H/O wrist surgery History of surgery on arm Social History Housing: House Alcohol intake: never Patient Tobacco Use Status: Former Tobacco user Tobacco use type: Cigarette Cigarette Packs Per Day: 1 Cigarettes Per Day: 20.0 Years Smoked: 14 e-Cigarette/Vaping Use: Never Used Second Hand Smoke Exposure: No Current occupational status: unemployed and retired Cognitive needs: No Hearing needs: No Vision needs: Yes Questionnaire PHQ-9 Over the last 2 weeks, how often have you been bothered by any of the following problems? 2. Feeling down, depressed, or hopeless: not at all 3. Trouble falling or staying asleep, or sleeping too much: not at all 4. Feeling tired or having little energy: not at all 5. Poor appetite or overeating: not at all Source: Developed by Drs. Junior Royal, Makayla Walker, Higinio Cobb and colleagues, with an educational stephen from [employer]. Thrive Questionnaire Date Thrive assessed: 10/10/23 I am a: Patient What is your living situation today?: I have a steady place to live Within the past 12 months, did the food you bought not last and you didn't have the money to get more?: I choose not to answer this question Within the past 12 months, did you worry whether your food would run out before you got money to buy more?: I choose not to answer this question Do you have trouble paying for medicines?: No Do you have trouble getting transportation to medical appointments?: No Do you have trouble paying your heating and electricity bill?: No Do you have trouble taking care of your child, family member or friend?: No Do you have trouble with day-to-day activities such as bathing, preparing meals, shopping, managing finances, etc.?: No Are you currently unemployed and looking for a job?: No Are you interested in more education?: No Please select the resources that you would like help with: None Currently or been in a relationship where the following occur: I choose not to answer THRIVE Score: 0 AUDIT C Alcohol Use Questionnaire (AUDIT-C) 1. How often do you have a drink containing alcohol?: Never 3. How often do you have six or more drinks on one occasion?: Never Total Score: 0 ABEL-7 AMB Questionnaire ABEL-7 Date ABEL - 7 assessed: 10/10/23 Source: Developed by Drs. Junior Royal, Makayla Walker, Higinio Cobb and colleagues, with an educational stephen from [employer]. Review of Systems Const Denies fever(s), Denies headache(s) and Denies poor appetite Eyes Reports no additional complaints ENT Denies dizziness and Denies headache(s) Card Denies chest pain, Denies syncope, Denies edema, Denies lightheadedness and Denies dyspnea Resp Denies dyspnea GI Denies abdominal pain, Denies constipation, Denies diarrhea, Denies nausea and Denies vomiting Reports no additional complaints Musc Reports no additional complaints and Denies abnormal gait Skin/Breast Reports system reviewed and no additional complaints, except as documented Neuro Denies abnormal gait, Denies dizziness, Denies syncope and Denies headache(s) Psych Reports no additional complaints Physical exam (Primary Care) Vital Signs: Last Vital Signs Pulse 73 12/03/23 09:21 BP 138/78 12/03/23 09:55 Pulse Ox 98 12/03/23 09:21 Oxygen Delivery Method Room Air 12/03/23 09:21 BMI result Body Mass Index 25.8 Tobacco/Smoking Status: Tobacco use Status Tobacco use date assessed 07/27/23 12/03/23 09:26 Patient Tobacco Use Status Former Tobacco user 12/03/23 09:26 Tobacco use type Cigarette 12/03/23 09:26 e-Cigarette/Vaping Use Never Used 12/03/23 09:26 Thrive Assessment: Date of Thrive Assessment Date Thrive assessed 10/10/23 12/03/23 09:26 Currently or been in a relationship where the following occur: I choose not to answer Const General: cooperative, healthy appearing, comfortable and no acute distress Orientation/consciousness: patient oriented x3 HENMT Head: Yes normocephalic Ears: hearing grossly normal bilaterally General nose exam: Normal external nose present Eyes General: appearance normal, both eyes and all related structures Conjunctivae: conjunctivae normal Neck Neck: Yes full ROM and Yes no lymphadenopathy Resp Effort & Inspection: normal respiratory effort Auscultation: clear to auscultation bilaterally, no crackles, no rales, no rhonchi and no wheezes Cardio Rate: regular rate Rhythm: regular rhythm Skin General skin exam: no rashes or lesions noted Neuro General: patient oriented x3 Gait exam (Neuro): Normal gait present Extrem General: Yes normal to inspection, Yes full ROM and No edema Psych Affect: normal affect Attitude: cooperative Insight: Good insight present (Psych) Judgement: Good judgement present (Psych) Coding Level of Care Code Est Pt Level 3 (83271) Diagnoses Chest mass R22.2 Type 2 diabetes mellitus with hyperglycemia, without long-term current use of insulin E11.65 Diabetes mellitus correction insulin use: without machine long goods helper use Hypercholesterolemia E78.00 Primary hypertension I10 Hypertension type: primary hypertension Assessment & Plan Assessment & Plan (1) Chest mass: Code(s): R22.2 - Localized swelling, mass and lump, trunk Category: Medical Plan: Chest CT coming up in December. 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 Although fruits are generally healthy they should be eaten in moderation as they are still high in sugar. Hemoglobin A1c goal of less than 7%. Encouraged patient to take metformin as prescribed and follow up with endocrinology. (3) Hypercholesterolemia: Code(s): E78.00 - Pure hypercholesterolemia, unspecified Category: Medical Plan: Avoid foods that are high in cholesterol such as red meat, fried foods, eggs and baked goods. Triglyceride goal of less than 150 and LDL goal of less than 100. Continue on current medication regimen. Ordered for updated blood work to be completed in 3 months with additional follow up. (4) Hypertension: Code(s): I10 - Essential (primary) hypertension Category: Medical Qualifiers: Hypertension type: primary hypertension Qualified Code(s): I10 - Essential (primary) hypertension Plan: Continue on current blood pressure medication. Avoid salt intake and encourage healthy diet and regular exercise. Blood pressure at goal today. Plan This note was constructed using voice recognition software. While every effort has been made to ensure accuracy and director of physiotherapy services, still areas may have been included sometimes these areas may affect the content or meeting of the given symptoms. Total time spent caring for the patient today was ___ minutes. This includes time spent before the visit reviewing the chart, time spent during the visit, and time spent after the visit and documentation. Orders: Orders Lipid Panel 3 Months Z00.00 - Encounter for general adult medical examination without abnormal findings
[2023-12-03 09:55] VITALS: BP 138/78
== END 2023-12-03 10:02 | disposition home or self-care (01) ==
PROVIDERS: PCP Internal Medicine
DX: R22.2 Localized swelling, mass and lump, trunk (principal); E11.65 Type 2 diabetes mellitus with hyperglycemia; E78.00 Pure hypercholesterolemia, unspecified; I10 Essential (primary) hypertension

== ENCOUNTER → 2023-12-03 09:17 | Outpatient (BNVA) | payer OTHER, SELFPAY | PROVIDERS: PCP Internal Medicine | DX: R22.2 Localized swelling, mass and lump, trunk (principal); E11.65 Type 2 diabetes mellitus with hyperglycemia; E78.00 Pure hypercholesterolemia, unspecified; I10 Essential (primary) hypertension | CPT/HCPCS: 99212 ==

== ENCOUNTER 2024-01-02 08:36 | Outpatient (REF) | payer OTHER, SELFPAY ==
[2024-01-02] MEDS: iohexoL 350 MG/ML 100 ML INFUS..BTL 65 ML IV (09:12)
[2024-01-03 10:00] LABS: GFR POC > 60
== END 2024-01-02 08:37 | disposition home or self-care (01) ==
LOC: HO.CT 08:36
PROVIDERS: PCP Internal Medicine
DX: R22.2 Localized swelling, mass and lump, trunk (principal)
CPT/HCPCS: 71260; 82565; Q9967

== ENCOUNTER → 2024-01-02 08:37 | Outpatient (BNV) | payer OTHER, SELFPAY | PROVIDERS: PCP Internal Medicine; Visit Provider Radiology Diagnostic Radiology | DX: R91.8 Other nonspecific abnormal finding of lung field (principal) | CPT/HCPCS: 71260 ==

== ENCOUNTER 2024-05-29 10:09 | Outpatient (AMB) | payer MEDICARE, MEDICAID, SELFPAY ==
--- NOTE | 2024-05-29 10:13 | A.OFFPC_ITS ---
Vital Signs 05/29/24 10:15 Height 6 ft Weight 182 lb BMI 24.7 BP 130/78 Blood Pressure Location Lt brachial Position Sitting Pulse 79 Pulse Source Pulse Oximeter Pulse Oximetry (%) 98 Oxygen Delivery Method Room Air Intake Visit Reasons: T2DM Allergies lactose [Lactose] Allergy (Mild, Verified 05/29/24 10:15) U Medication List - Last Reconciled 05/29/24 by Ty Major MD blood sugar diagnostic (FreeStyle Lite Strips) As directed check the BS QD blood sugar diagnostic (OneTouch Ultra Test strips) As directed once per day lancets (OneTouch Delica Plus Lancet) As directed once per day lisinopril-hydrochlorothiazide 20-12.5 mg 1 tab PO DAILY metformin 500 mg PO BID 90 days simvastatin 20 mg PO QPM Tobacco use date assessed: 05/29/24 Fall risk assessment: No Falls in past year Last assessed Fall Risk: 05/29/24 Dental Screening Dental Screen Date: 05/29/24 Did you have a dental visit in the last 12 months?: No Did you have a dental problem in the last 6 months where you did not have access to dental care?: No Was dental information given to patient?: No PFSH Medical History History of tuberculosis Colon cancer screening Overweight (BMI 25.0-29.9) Hypercholesterolemia Hypertension Type 2 diabetes mellitus with hyperglycemia Surgical History H/O colonoscopy H/O toe surgery H/O wrist surgery History of surgery on arm Social History Housing: House Alcohol intake: never Patient Tobacco Use Status: Former Tobacco user Tobacco use type: Cigarette Cigarette Packs Per Day: 1 Cigarettes Per Day: 20.0 Years Smoked: 14 e-Cigarette/Vaping Use: Never Used Second Hand Smoke Exposure: No Current occupational status: unemployed and retired Cognitive needs: No Hearing needs: No Vision needs: Yes Questionnaire Thrive Questionnaire Date Thrive assessed: 05/29/24 I am a: Patient What is your living situation today?: I have a steady place to live Within the past 12 months, did the food you bought not last and you didn't have the money to get more?: I choose not to answer this question Within the past 12 months, did you worry whether your food would run out before you got money to buy more?: I choose not to answer this question Do you have trouble paying for medicines?: No Do you have trouble getting transportation to medical appointments?: No Do you have trouble paying your heating and electricity bill?: No Do you have trouble taking care of your child, family member or friend?: No Do you have trouble with day-to-day activities such as bathing, preparing meals, shopping, managing finances, etc.?: No Are you currently unemployed and looking for a job?: No Are you interested in more education?: No Please select the resources that you would like help with: None Currently or been in a relationship where the following occur: I choose not to answer THRIVE Score: 0 ABEL-7 AMB Questionnaire ABEL-7 Date ABEL - 7 assessed: 10/10/23 Source: Developed by Drs. Junior Royal, Makayla Walker, Higinio Cobb and colleagues, with an educational stephen from [employer]. Physical exam (Primary Care) Vital Signs: Last Vital Signs Pulse 79 05/29/24 10:15 BP 130/78 05/29/24 10:15 Pulse Ox 98 05/29/24 10:15 Oxygen Delivery Method Room Air 05/29/24 10:15 BMI result Body Mass Index 24.7 Tobacco/Smoking Status: Tobacco use Status Tobacco use date assessed 05/29/24 05/29/24 10:16 Patient Tobacco Use Status Former Tobacco user 05/29/24 10:14 Tobacco use type Cigarette 05/29/24 10:14 e-Cigarette/Vaping Use Never Used 05/29/24 10:14 Thrive Assessment: Date of Thrive Assessment Date Thrive assessed 05/29/24 05/29/24 10:14 Currently or been in a relationship where the following occur: I choose not to answer Const General: alert; No acute distress Eyes Conjunctivae: conjunctivae normal Resp Auscultation: clear to auscultation bilaterally Cardio Rate: regular rate Rhythm: regular rhythm GI Inspection: Yes normal to inspection Extrem General: Yes normal to inspection and No edema Results AMB Hemoglobin A1c AMB Hemoglobin A1c 9.0 % Last Edit by Latoya Connelly CMA on 05/29/24 10 :37 Results Reviewed Results Reviewed: Laboratory Last Values Hgb A1c (Clinic) 9.0 % (4.0-6.0) H 05/29/24 10:16 Coding Level of Care Code Est Pt Level 4 (91442) Complex EM visit Add On G2211 Diagnoses Ascending aorta dilatation I77.810 Pulmonary nodule R91.1 Type 2 diabetes mellitus with hyperglycemia, without long-term current use of insulin E11.65 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 No hiatal hernia. Six-month groundglass nodule right upper lobe. Two pleural-based 4 mm nodules right upper lobe adjacent to each other. Recommend follow-up in 6 months as low-dose CT. Aneurysmal dilatation of ascending aorta. Code(s): I77.810 - Thoracic aortic ectasia Category: Medical Plan: Will order for an echocardiogram (2) Pulmonary nodule: Comment: December 2023No abnormality seen along the left medial diaphragm. No hiatal hernia. Six-month groundglass nodule right upper lobe. Two pleural-based 4 mm nodules right upper lobe adjacent to each other. Recommend follow-up in 6 months as low-dose CT. Aneurysmal dilatation of ascending aorta. Code(s): R91.1 - Solitary pulmonary nodule Category: Medical Plan: Recommend CT scan to be done in June 2024 (3) Type 2 diabetes mellitus with hyperglycemia: Comment: 2020 eye [facility], My EYEDR 10/2022 Code(s): E11.65 - Type 2 diabetes mellitus with hyperglycemia Category: Medical Qualifiers: Diabetes mellitus residential insulin use: without residential use Qualified Code(s): E11.65 - Type 2 diabetes mellitus with hyperglycemia Plan: Decrease the amount of carbohydrate intake, pasta, bread, rice and potatoes are all sugar and that is aside from all the sweet stuff, remember that fruits are good but they are Sweet also. Hemoglobin A1c goal of less than 7.0 patient is on metformin a 1000 mg twice a day only (4) Hypertension: Code(s): I10 - Essential (primary) hypertension Category: Medical Qualifiers: Hypertension type: primary hypertension Qualified Code(s): I10 - Essential (primary) hypertension Plan: Continue with blood pressure medication. Decrease salt intake and exercise takes lisinopril hydrochlorothiazide 2011.5 (5) Hypercholesterolemia: Code(s): E78.00 - Pure hypercholesterolemia, unspecified Category: Medical Plan: Avoid fried foods, chicken skin, eggs, butter margarine, pastries and meat. Be it pork or beef they have a lot of cholesterol takes simvastatin 20 mg once a day patient needs blood work in the next 3 months Plan History of Present Illness The patient is a 73-year-old male presenting with a follow-up to evaluate a chest mass and manage chronic conditions. A CT scan conducted in December 2023 highlighted a 6 mm crown glass nodule and a 4 mm pleural-based nodule in the right upper lobe, with a recommendation for a July 2024 follow-up. The CT scan also revealed aneurysmal dilation of the ascending aorta at 4.5 cm, prompting the suggestion of an echocardiogram. For his type 2 diabetes, the patient's hemoglobin A1c is notably elevated at 9 against a target of less than 7, necessitating adjustments in his medication, Metformin, which has been altered due to reported gastrointestinal side effects. His cholesterol management shows sporadic compliance, with LDL levels maintained at 110, advising more consistent therapy. His hypertension is effectively managed with lisinopril and hydrochlorothiazide. His past tubular adenoma was last evaluated with a colonoscopy in 2022. Ophthalmologic evaluations in December 2023 returned no diabetic retinopathy. Health Maintenance - CT scan conducted in December 2023 with follow-up recommended for July 2024. - Ophthalmology examination in December 2023 showed no diabetic retinopathy. - Monitoring of hemoglobin A1c every three months with a target of less than 7%. - Blood pressure management with lisinopril and hydrochlorothiazide. - Cholesterol management with simvastatin and dietary adjustments. - Regular colonoscopy screening for tubular adenoma. Social History - The patient did not discuss housing, employment, or family status. - Reports inconsistent compliance with medication for cholesterol management. Review of Systems - Respiratory: Reports increased thirst and nocturia. Denies cough or respiratory difficulty. - Cardiovascular: Reports known aneurysmal dilation of the ascending aorta. - Endocrinology: Reports elevated hemoglobin A1c levels with history of diabetes. - Gastrointestinal: Denies changes in bowel movements. - Urinary: Reports nocturia. - Musculoskeletal: Denies joint pain or swelling. - General: Reports medication adjustment due to gastrointestinal discomfort. Physical Exam Results - CT scan (December 2023): 6 mm crown glass nodule and 4 mm pleural-based nodule in the right upper lobe; ascending aortic aneurysm at 4.5 cm. - Hemoglobin A1c: 9 - LDL cholesterol: 110 Plan 1. The identified ascending aortic aneurysm at 4.5 cm will require further assessment with an echocardiogram to monitor progression. For diabetes management, I prescribed Jardiance to address the elevated HbA1c of 9 and adjusted the Metformin dosage for better tolerance and adherence. He is managing his blood pressure with lisinopril and hydrochlorothiazide and is advised to consistently take simvastatin for hypercholesterolemia management. I highlighted the significance of lifestyle changes, including adherence to medication and dietary adjustments. Several follow-up tests and evaluations are planned to ensure optimal management of his health conditions.: Patient was informed and verbally consented to the use of an ambient scribe for clinic note documentation during this visit. Discussion Notes I discussed with the patient the findings from the recent CT scan, particularly noting the presence of nodules in the right upper lobe and the incidental finding of an ascending aortic aneurysm. We emphasized the importance of conducting a follow-up CT scan in July 2024 and arranging an echocardiogram to monitor any changes in the ascending aorta. I also covered the management of his diabetes, prescribing Jardiance for his elevated HbA1c, adjusting Metformin for symptom management, and the necessity of medication adherence for cholesterol and blood pressure control. I ensured the patient understood the rationale behind these interventions and the potential benefits. We talked about the upcoming evaluations and reinforced the guidance on lifestyle modifications to maintain and improve his health status. Patient Instructions - Take Jardiance as prescribed to help control blood sugar levels. - Take 500 mg of Metformin twice a day with meals to ease stomach discomfort. - Follow medication regimen for simvastatin and blood pressure management. - Schedule and attend the follow-up CT scan in July 2024. - Schedule an echocardiogram to assess the ascending aortic aneurysm. - Monitor blood sugar levels regularly and keep a record. - Inform us of any medication side effects or concerns immediately. - Maintain a healthy diet and exercise regularly. - Ensure hydration, especially with increased thirst. - Ask about portal access to communicate easier about any health questions. - Seek medical attention if experiencing any new or alarming symptoms, such as chest pain or difficulty breathing. Orders: Orders AMB Hemoglobin A1c Today Z13.9 - Encounter for screening, unspecified CA echo transthoracic complete 3 Months I77.810 - Thoracic aortic ectasia Comprehensive Met. Panel 3 Months E11.65 - Type 2 diabetes mellitus with hyperglycemia Free T4 (Free Thyroxine) 3 Months E11.65 - Type 2 diabetes mellitus with hyperglycemia Hemoglobin A1c 3 Months E11.65 - Type 2 diabetes mellitus with hyperglycemia Complete Blood Count Auto Diff 3 Months E11.65 - Type 2 diabetes mellitus with hyperglycemia Thyroid Stimulating Hormone 3 Months E11.65 - Type 2 diabetes mellitus with hyperglycemia Lipid Panel 3 Months E11.65 - Type 2 diabetes mellitus with hyperglycemia, E78.00 - Pure hypercholesterolemia, unspecified Vitamin B12 and Folate 3 Months E11.65 - Type 2 diabetes mellitus with hyperglycemia Medications: New empagliflozin (Jardiance) 10 mg PO DAILY 30 tabs 3RF E11.65 - Type 2 diabetes mellitus with hyperglycemia Changed From metformin 1,000 mg PO BID 90 days 180 tabs 2RF E11.65 - Type 2 diabetes mellitus with hyperglycemia To metformin 500 mg PO BID 180 tabs 2RF 90 days E11.65 - Type 2 diabetes mellitus with hyperglycemia
[2024-05-29 10:15] VITALS: BP 130/78; PULSE 79; O2SAT 98; BMI 24.7
--- OUTSIDE RECORDS SUMMARY | 2024-05-29 12:02 | XMS_ITS | Encounter Summary ---
Author Organization [employer] Address [address] [place] [address] [address] [place] [address] Care Team Providers Care Train System Operator Name Role Phone Liset Greenwood MD Primary Care Provider [phone] Encounter Details Date Type Department Care Team ([facility] st Contact Info) Description 08/18/2022 Orders Only [facility] [address] [place] [address] Neyda Ewing LPN Social History Tobacco Use Types Packs/Day Years Used Date Smoking Tobacco: Never Assessed Sex and Gender Information Value Date Recorded Sex Assigned at Male 12/12/2021 10:15 AM EDT Legal Sex Male 10:15 AM EDT Gender Identity Male 12/12/2021 10:15 AM EDT Sexual Orientation Choose not to disclose 2021 10:15 AM EDT documented as of this encounter Plan of Treatment Not on file documented as of this encounter Visit Diagnoses Not on filedocumented in this encounter Care Teams Train System Operator Relationship Specialty Start Date End Date Liset Greenwood MD [address] [place] [address] PCP - General Internal Medicine 05/16/18 documented as of this encounter
--- OUTSIDE RECORDS SUMMARY | 2024-05-29 12:02 | XMS_ITS | Clinical Summary ---
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 Carpal tunnel syndrome 02/12/1959 Erectile dysfunction 02/12/1959 Gastroesophageal reflux disease 02/12/1959 Immunizations Name Administration Dates Next Due Pneumococcal Conjugate PCV 13 06/26/2018 TD (adult), 2 Lf tetanus tox oid, preservative free, adsorbed 11/16/2003 Tdap 09/13/2018 Social History Tobacco Use Types Packs/Day Years Used Date Smoking Tobacco: Never Assessed Sex and Gender Information Value Date Recorded Sex Assigned at Male 12/12/2021 10:15 AM EDT Legal Sex Male 10:15 AM EDT Gender Identity Male 12/12/2021 10:15 AM EDT Sexual Orientation Choose not to disclose 2021 10:15 AM EDT Last Filed Vital Signs Vital Sign Reading Time Taken Comments Blood Pressure 118/70 09/15/2021 12:08 AM EDT Pulse 72 09/15/2021 12:08 AM EDT Temperature - - Respiratory Rate - - Oxygen Saturation - - Inhaled Oxygen Concentration - - Weight 87.5 kg (193 lb) 09/15/2021 12:08 AM EDT Height 180.3 cm (5' 11 ) 09/15/2021 12:08 AM EDT Body Mass Index 26.92 09/15/2021 12:08 AM EDT Plan of Treatment Health Maintenance Due Date Last Done Comments CT Colonography 1951 Colonoscopy 1951 Colorectal Cancer Screening 1951 Depression Screening 1951 FIT DNA/Cologuard 1951 FIT 1951 FOBT 1951 Sigmoidoscopy 1951 Alcohol/Substance Use Screening 1963 Tobacco Screening 1963 Zoster Vaccines (1 of 2) 10/29/2001 Pneumococcal Vaccine: 50+ Years (2 of 2 - PPSV23) 06/27/2019 06/26/2018 COVID-19 Vaccine (2023-2 5 season) 2023 Influenza Vaccine (#1) 2023 Lipid Panel 03/22/2025 03/22/2020, 12/10/2019 RSV Patients and Patients Aged 60 years or older (1 - 1-dose 75+ series) 10/29/2026 DTaP/Tdap/Td Vaccines (2 - T d or Tdap) 09/13/2028 09/13/2018, 11/16/2003 HIB Vaccines Aged Out No longer eligi ble based on patient's age to complete this topic HPV Vaccines Aged Out No longer eligi ble based on patient's age to complete this topic Hepatitis A Vaccines Aged Out No long er eligible based on patient's age to complete this topic Hepatitis B Vaccines Aged Out No long er eligible based on patient's age to complete this topic IPV Vaccines Aged Out No longer eligi ble based on patient's age to complete this topic Meningococcal Vaccine Aged Out No shahzad cleve eligible based on patient's age to complete this topic RSV under 20 months Aged Out No longe r eligible based on patient's age to complete this topic Rotavirus Vaccines Aged Out No longer eligible based on patient's age to complete this topic Procedures Procedure Name Priority Date/Time Associated Diagnosis Comments LIPID PANEL, STANDARD Routine 03/22/2020 9:37 AM EST from Last 3 Months or Most Recently Relevant to Health Maintenance Results * (ABNORMAL) LIPID PANEL, STANDARD (03/22/2020 9:37 AM EST) Chol/HDLC Ratio 3.4 <5.0 (calc) [facility] Cholesterol, Total 134 <200 mg/dL [facility] HDL Cholesterol 40 > OR = 40 mg/dL [facility] LDL Cholesterol 71 mg/dL (calc) [facility] Comment: Reference range: <100 ?? Desirable range <100 mg/dL for primary prevention; ?? <70 mg/dL for patients with CHD or diabetic patients ?? with > or = 2 CHD risk factors. ?? LDL-C is now calculated using the Orion ?? calculation, which is a validated novel method providing ?? better accuracy than the Friedewald equation in the ?? estimation of LDL-C. ?? Evan VILLARREAL et al. ANGIE. 2013;310(19): 9588-4356 ?? (http://education.Alibaba/faq/EJC262) Non-HDL Cholesterol 94 <130 mg/dL (calc) [facility] Comment: For patients with diabetes plus 1 major ASCVD risk ?? factor, treating to a non-HDL-C goal of <100 mg/dL ?? (LDL-C of <70 mg/dL) is considered a therapeutic ?? option. Triglycerides 156(H) <150 mg/dL [facility] 03/22/2020 9:37 AM EST us Liset Greenwood MD LAB BLOOD ORDERABLES Final Result [facility] [address] [place] [address], from Last 3 Months or Most Recently Relevant to Health Maintenance Care Teams Power Plant Installer Relationship Specialty Start Date End Date Liset Greenwood MD [address] [place] [id number] PCP - General Internal Medicine 05/16/18
--- OUTSIDE RECORDS SUMMARY | 2024-05-29 12:02 | XMS_ITS | Encounter Summary ---
Author Organization [employer] Address [address] [place] [address] [address] [place] [address] Care Team Providers Care Block Sorter Name Role Phone Liset Greenwood MD Primary Care Provider [phone]- [phone] Reason for Visit * Reason Comments Med Refill Encounter Details Date Type Department Care Team ([facility] st Contact Info) Description 08/20/2023 Refill [facility] CH[facility] MED & PEDS [address] [place] [address] Liset Greenwood MD [address] [place] [address] Social History Tobacco Use Types Packs/Day Years [...] on filedocumented in this encounter Care Teams Block Sorter Relationship Specialty Start Date End Date Liset Greenwood MD [address] [place] [address] PCP - General Internal Medicine 05/16/18 documented as of this encounter
--- OUTSIDE RECORDS SUMMARY | 2024-05-29 12:02 | XMS_ITS | Encounter Summary ---
Author Organization [employer] Address [address] [place] [address] [address] [place] [address] Care Team Providers Care Security Delivery Specialist Name Role Phone Liset Greenwood MD Primary Care Provider [phone]- [phone] Reason for Visit * Reason Comments Med Refill Encounter Details Date Type Department Care Team ([facility] st Contact Info) Description 08/22/2023 Refill [facility] CHC MED & PEDS [address] [place] [address] Liset Greenwood MD [address] [place] [address] Social History Tobacco Use Types Packs/Day Years [...] on filedocumented in this encounter Care Teams Security Delivery Specialist Relationship Specialty Start Date End Date Liset Greenwood MD [address] [place] [address] PCP - General Internal Medicine 05/16/18 documented as of this encounter
--- OUTSIDE RECORDS SUMMARY | 2024-05-29 12:02 | XMS_ITS | Encounter Summary ---
Author Organization [facility] Address [address] [place] [address] [address] [address] Care Team Providers Care Microwave Radio Technician Name Role Phone Liset Greenwood MD Primary Care Provider [phone]- [phone] Reason for Visit * Reason Comments Med Refill Encounter Details Date Type Department Care Team ([facility] st Contact Info) Description 11/04/2022 Refill [facility] CHC MED & PEDS [address] [place] [address] Liset Greenwood MD [address] [place] [address] Type 2 diabetes mellitus with hyperglycemia (CMS/HCC) Social History Tobacco Use Types Packs/Day Years [...] documented as of this encounter Visit Diagnoses Diagnosis Type 2 diabetes mellitus with hyperglycemia (CMS/HCC) documented in this encounter Care Teams Microwave Radio Technician Relationship Specialty Start Date End Date Liset Greenwood MD [address] [place] [address] PCP - General Internal Medicine 05/16/18 documented as of this encounter
== END 2024-05-29 11:01 | disposition home or self-care (01) ==
LOC: HO.HMCH 10:10
PROVIDERS: PCP Internal Medicine; Visit Provider Internal Medicine
DX: I77.810 Thoracic aortic ectasia (principal); R91.1 Solitary pulmonary nodule; E11.65 Type 2 diabetes mellitus with hyperglycemia; I10 Essential (primary) hypertension; E78.00 Pure hypercholesterolemia, unspecified; Z13.9 Encounter for screening, unspecified

== ENCOUNTER → 2024-05-29 10:09 | Outpatient (BNVA) | payer MEDICARE, SELFPAY | PROVIDERS: PCP Internal Medicine; Visit Provider Internal Medicine | DX: I77.810 Thoracic aortic ectasia (principal); R91.1 Solitary pulmonary nodule; E11.65 Type 2 diabetes mellitus with hyperglycemia; E78.00 Pure hypercholesterolemia, unspecified; I10 Essential (primary) hypertension | CPT/HCPCS: 83036; 99212 ==

== ENCOUNTER 2024-06-05 09:14 | Outpatient (AMB) | payer MEDICARE, MEDICAID, SELFPAY ==
--- NOTE | 2024-06-05 09:54 | A.OFFPC_ITS ---
Vital Signs 06/05/24 09:55 06/05/24 10:05 Height 6 ft Weight 180 lb 4 oz BMI 24.4 BP 150/88 H 124/80 Blood Pressure Location Lt brachial Lt brachial Position Sitting Sitting Pulse 84 Pulse Source Pulse Oximeter Temp 97.3 F Temp Source Temporal Artery Scan Pulse Oximetry (%) 94 Oxygen Delivery Method Room Air Intake Visit Reasons: f/u DM and HLD Glue Line Operator Required: No Accompanied by: Self / Same As Patient Allergies lactose [Lactose] Allergy (Mild, Verified 06/05/24 09:59) U Tobacco use date assessed: 05/29/24 Fall risk assessment: No Falls in past year Last assessed Fall Risk: 06/05/24 Dental Screening Dental Screen Date: 05/29/24 [facility] Medical History History of tuberculosis Colon cancer screening Overweight (BMI 25.0-29.9) Hypercholesterolemia Hypertension Type 2 diabetes mellitus with hyperglycemia Surgical History H/O colonoscopy H/O toe surgery H/O wrist surgery History of surgery on arm Social History Housing: House Alcohol intake: never Patient Tobacco Use Status: Former Tobacco user Tobacco use type: Cigarette Cigarette Packs Per Day: 1 Cigarettes Per Day: 20.0 Years Smoked: 14 Packs Per Year: 14 Packs per year/per ci.00 e-Cigarette/Vaping Use: Never Used Second Hand Smoke Exposure: No Current occupational status: unemployed and retired Cognitive needs: No Hearing needs: No Vision needs: Yes Questionnaire PHQ-9 Over the last 2 weeks, how often have you been bothered by any of the following problems? 1. Little interest or pleasure in doing things: not at all 2. Feeling down, depressed, or hopeless: not at all 3. Trouble falling or staying asleep, or sleeping too much: not at all 4. Feeling tired or having little energy: not at all 5. Poor appetite or overeating: not at all 6. Feeling bad about yourself - or that you are a failure or have let yourself or your family down: not at all 7. Trouble concentrating on things, such as reading the newspaper or watching television: not at all 8. Moving or speaking so slowly that other people could have noticed. Or the opposite - being so fidgety or restless that you have been moving around a lot more than usual: not at all 9. Thoughts that you would be better off or of hurting yourself in some way: not at all Total score: 0 Depression Screening Interpretation: Negative Depression Screening Done: Yes 29092 - PHQ-9 Billing: Yes Source: Developed by Drs. Junior Royal, Makayla Walker, Higinio Cobb and colleagues, with an educational stephen from [employer]. Thrive Questionnaire Date Thrive assessed: 06/05/24 I am a: Patient What is your living situation today?: I have a steady place to live Within the past 12 months, did the food you bought not last and you didn't have the money to get more?: I choose not to answer this question Within the past 12 months, did you worry whether your food would run out before you got money to buy more?: I choose not to answer this question Do you have trouble paying for medicines?: No Do you have trouble getting transportation to medical appointments?: No Do you have trouble paying your heating and electricity bill?: No Do you have trouble taking care of your child, family member or friend?: No Do you have trouble with day-to-day activities such as bathing, preparing meals, shopping, managing finances, etc.?: No Are you currently unemployed and looking for a job?: No Are you interested in more education?: No Please select the resources that you would like help with: None Currently or been in a relationship where the following occur: I choose not to answer THRIVE Score: 0 AUDIT C Alcohol Use Questionnaire (AUDIT-C) 1. How often do you have a drink containing alcohol?: Never 3. How often do you have six or more drinks on one occasion?: Never Total Score: 0 ABEL-7 AMB Questionnaire ABEL-7 Date ABEL - 7 assessed: 06/05/24 Feeling nervous, anxious, or on edge: 0 = Not at all Not being able to stop or control worryin = Not at all Worrying too much about different things: 0 = Not at all Trouble relaxin = Not at all Being so restless that it is hard to sit still: 0 = Not at all Becoming easily annoyed or irritable: 0 = Not at all Feeling afraid as if something awful might happen: 0 = Not at all Total ABEL-7 score (0-4 normal; 5-9 mild; 10-14 moderate; 15-21 severe): 0 Source: Developed by Drs. Junior Royal, Makayla Walker, Higinio Cobb and colleagues, with an educational stephen from [employer]. ABEL-7 Assessment Billing ABEL-7 Assessment Tool: ABEL-7 Assessment 15240 Physical exam (Primary Care) Vital Signs: Last Vital Signs Temp 97.3 F 06/05/24 09:55 Pulse 84 06/05/24 09:55 BP 124/80 06/05/24 10:05 Pulse Ox 94 06/05/24 09:55 Oxygen Delivery Method Room Air 06/05/24 09:55 BMI result Body Mass Index 24.4 Tobacco/Smoking Status: Tobacco use Status Tobacco use date assessed 05/29/24 06/05/24 10:00 Patient Tobacco Use Status Former Tobacco user 06/05/24 10:00 Tobacco use type Cigarette 06/05/24 10:00 e-Cigarette/Vaping Use Never Used 06/05/24 10:00 PHQ-9: PHQ-9 Score PHQ-9: Total score 0 06/05/24 10:00 Depression Screening Interpretation: Negative Thrive Assessment: Date of Thrive Assessment Date Thrive assessed 06/05/24 06/05/24 10:00 Currently or been in a relationship where the following occur: I choose not to answer Const General: alert; No acute distress Eyes Conjunctivae: conjunctivae normal Resp Auscultation: clear to auscultation bilaterally Cardio Rate: regular rate Rhythm: regular rhythm GI Inspection: Yes normal to inspection Extrem General: Yes normal to inspection and No edema Coding Level of Care Code Est Pt Level 4 (55045) Complex EM visit Add On G2211 Diagnoses Type 2 diabetes mellitus with hyperglycemia, without long-term current use of insulin E11.65 Diabetes mellitus care home insulin use: without care home use Primary hypertension I10 Hypertension type: primary hypertension Hypercholesterolemia E78.00 Ascending aorta dilatation I77.810 Additional Codes ABEL-7 Assessment Billing - ABEL-7 Assessment Tool: ABEL-7 Assessment 59101 ([id number]) PHQ-9 - 72654 - PHQ-9 Billing: Yes ([id number]) Assessment & Plan Assessment & Plan (1) Type 2 diabetes mellitus with hyperglycemia: Comment: 2020 eye Meenakshi Hawkins EYEDR 10/2022 Code(s): E11.65 - Type 2 diabetes mellitus with hyperglycemia Category: Medical Qualifiers: 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 Hemoglobin A1c goal of less than 7.0 patient is on Jardiance 10 mg once a day metformin 500 mg twice a day (2) Hypertension: Code(s): I10 - Essential (primary) hypertension Category: Medical Qualifiers: Hypertension type: primary hypertension Qualified Code(s): I10 - Essential (primary) hypertension Plan: Continue with blood pressure medication. Decrease salt intake and exercise on lisinopril hydrochlorothiazide 2012.5 once a day (3) Hypercholesterolemia: Code(s): E78.00 - Pure hypercholesterolemia, unspecified Category: Medical Plan: Avoid fried foods, chicken skin, eggs, butter margarine, pastries and meat. Be it pork or beef they have a lot of cholesterol LDL goal of less than 100 and triglyceride of less than 150 on simvastatin 20 mg once a day (4) Ascending aorta dilatation: Comment: CT scan December 2023No abnormality seen along the left medial diaphragm. No hiatal hernia. Six-month groundglass nodule right upper lobe. Two pleural-based 4 mm nodules right upper lobe adjacent to each other. Recommend follow-up in 6 months as low-dose CT. Aneurysmal dilatation of ascending aorta. Code(s): I77.810 - Thoracic aortic ectasia Category: Medical Plan: August 2024 schedule for echocardiogram Plan History of Present Illness The patient is a 73-year-old male presenting for follow-up of diabetes management, hypertension, hypercholesterolemia, and other chronic conditions. He has a notable history of diabetes mellitus, with a recent Hemoglobin A1c of 9.0% in May 2024. Current management includes Jardiance and Metformin, with a target A1c of less than 7.0%. His hypertension is treated with Lisinopril and Hydrochlorothiazide, and he reported a significant reduction in blood pressure, recorded at 124 mmHg. The patient is also managing hypercholesterolemia with Simvastatin, with recent LDL levels at 110 mg/dL, and a goal of under 100 mg/dL. There is a history of ascending aortic dilatation and the presence of a pulmonary nodule, last evaluated in December 2023. He has a history of tubular adenoma, with his last colon assessment performed in February 2022. An echocardiogram is scheduled for September 2024. Health Maintenance - Hemoglobin A1c target: <7.0% for diabetes management - Blood pressure target: Achieved reduction from 145 mmHg to 124 mmHg - LDL cholesterol goal: <100 mg/dL - Regular follow-ups for pulmonary nodule and ascending aortic dilatation - Scheduled echocardiogram for cardiac evaluation - Discussion on the importance of managing stress Social History - Consistent work schedule: 7:00 am to 3:00 pm - Experiences stress-related symptoms, particularly in high heat - Engages in self-monitoring of blood glucose - Actively using medications and adheres to dietary guidelines - Expresses intent to follow healthy lifestyle habits Review of Systems - Cardiovascular: Reports stress-related chest tightness without significant current chest pain. - Endocrine: Denies current hypoglycemic episodes. - Musculoskeletal: Denies significant joint pain. - General: Reports well-being and energy level maintained. Physical Exam - Cardiovascular- Evaluated by patient history, no additional findings reported. Results - Labs: Hemoglobin A1c of 9.0% (May 2024), LDL cholesterol at 110 mg/dL (August 2023) - Diagnostics: Scheduled echocardiogram in September 2024 Plan 1. 0%. For hypertension, the current Lisinopril and Hydrochlorothiazide therapy will continue, with recent improvements in blood pressure readings. Simvastatin therapy will be maintained to target LDL levels under 100 mg/dL. We will perform an echocardiogram in September 2024 to monitor ascending aortic dilatation and ensure ongoing cardiac evaluation. Regular follow-ups for pulmonary nodule monitoring are planned, and stress management advice was provided due to historic stress-related chest discomfort. Emphasis was placed on adherence to medication, lifestyle adjustments, and regular lab checks.: Patient was informed and verbally consented to the use of an ambient scribe for clinic note documentation during this visit. Discussion Notes I reviewed the patient's diabetes management plan focusing on achieving an A1c goal of less than 7.0%, discussing the current medications and adherence strategies. The benefit of improving glycemic control to prevent complications was emphasized. For hypertension, we discussed the effectiveness of Lisinopril and Hydrochlorothiazide in achieving target blood pressure levels. We reviewed the patient's hypercholesterolemia management, with goals set for LDL cholesterol and the role of Simvastatin. The echocardiogram, scheduled for September 2024, was discussed in context of monitoring cardiac health, notably addressing the ascending aortic dilatation. We addressed stress management strategies and the potential for stress-related symptoms, ensuring understanding of the connection between lifestyle factors and cardiovascular health. All follow-up plans were outlined, including lab and diagnostic procedures. Patient Instructions - Continue current diabetes medication regimen as instructed. - Monitor blood glucose regularly at home. - Maintain blood pressure management with prescribed medications. - Continue taking Simvastatin for cholesterol control. - Attend scheduled echocardiogram in September 2024. - Practice stress management techniques. - Engage in a healthy diet and exercise routine. - Follow up with blood work prior to the next scheduled appointment. - Contact the clinic with any new or worsening symptoms.
[2024-06-05 09:55] VITALS: BP 150/88; PULSE 84; TEMP 36.3; O2SAT 94; BMI 24.4
[2024-06-05 10:05] VITALS: BP 124/80
== END 2024-06-05 11:17 | disposition home or self-care (01) ==
LOC: HO.HMCH 09:15
PROVIDERS: PCP Internal Medicine; Visit Provider Internal Medicine
DX: E11.65 Type 2 diabetes mellitus with hyperglycemia (principal); I10 Essential (primary) hypertension; E78.00 Pure hypercholesterolemia, unspecified; I77.810 Thoracic aortic ectasia

== ENCOUNTER → 2024-06-05 09:14 | Outpatient (BNVA) | payer MEDICARE, MEDICAID, SELFPAY | PROVIDERS: PCP Internal Medicine; Visit Provider Internal Medicine | DX: E11.65 Type 2 diabetes mellitus with hyperglycemia (principal); E78.00 Pure hypercholesterolemia, unspecified; I10 Essential (primary) hypertension; I77.810 Thoracic aortic ectasia | CPT/HCPCS: 96127; 99212 ==

== ENCOUNTER → 2024-08-27 09:18 | Outpatient (REF) | payer MEDICARE, SELFPAY ==
--- OUTSIDE RECORDS SUMMARY | 2024-08-27 09:38 | XMS_ITS | Clinical Summary ---
Author Organization [employer] Address [address] [place] [address] [address] [place] [address] Care Team Providers Care Brush Cutter Name Role Phone Liset Greenwood MD Primary Care Provider [phone]- [phone] Medications glimepiride (Amaryl) 2 MG tablet TAKE [...] dysfunction 02/[birth year]/1959 Gastroesophageal reflux disease 02/12/1959 Immunizations Immunization Administration Dates Next Due Pneumococcal Conjugate PCV [...] (2023-2 5 season) 2023 Influenza Vaccine (#1) 2024 Lipid Panel 03/22/2025 03/22/2020, 12/10/2019 RSV Patients [...] patient's age to complete this topic Meningococcal B Vaccine Aged Out No l onger eligible based on patient's age to complete [...] [facility] Comment: Reference range: <100 Desirable range <100 mg/dL for primary prevention; <70 mg/dL for patients with CHD or diabetic patients with > or = 2 CHD risk factors. LDL-C is now calculated using the Evan-Nataly calculation, which is a validated novel method providing better accuracy than the Friedewald equation in the estimation of LDL-C. Evan SS et al. ANGIE. 2013;310(19): 8386-7347 (http://education.Box Garden.Postcard & Tag/faq/KYI627) Non-HDL Cholesterol 94 <130 mg/dL (calc) [facility] Comment: For patients with diabetes plus 1 major ASCVD risk factor, treating to a non-HDL-C goal of <100 mg/dL (LDL-C of <70 mg/dL) is considered a therapeutic option. Triglycerides 156(H) <150 mg/dL [facility] 03/22/2020 9:37 AM EST us Liset Greenowod MD LAB BLOOD ORDERABLES Final Result [facility] [address] from Last 3 Months or Most Recently Relevant to Health Maintenance Care Teams Brush Cutter Relationship Specialty Start Date End Date Liset Greenwood MD [address] [place] [address] PCP - General Internal Medicine 05/16/18
--- NOTE | 2024-08-27 09:42 | CA_ITS ---
Transthoracic Echocardiogram Patient (Last, First, Middle): Zhang Li J Gender: Male Date of : 1950 Age: 73 Procedure Date: 08/27/2024 Procedure Type: Transthoracic Echocardiogram Location: OP Height: 182.88 cm Weight: 81.65 kg BSA: 2.04 m2 Heart Rate: 70 bpm BP: 126 / 80 mmHg Bulb Grower: SB Referring MD: Ty Major MD Symptoms: I77.810 - Thoracic aortic ectasia Study Quality: Adequate ECG Rhythm: Sinus Conclusions: - The left ventricular systolic function is normal. The calculated ejection fraction is 63% by biplane method. - No obvious valvular pathology seen on this study. - There is moderate dilatation of the ascending aorta measuring 4.70 cm. Findings Left Ventricle Normal left ventricular cavity size. There is normal left ventricular wall thickness. The left ventricular systolic function is normal. The calculated ejection fraction is 63% by biplane method. There is no evidence of regional wall motion abnormalities. Diastolic function is normal for age. Right Ventricle Mildly increased right ventricular cavity size. There is normal right ventricular systolic function. Atria Both atria are normal in size. Aortic Valve There is a normal trileaflet aortic valve. There is no aortic valve stenosis. There is no aortic valve regurgitation. Mitral Valve The mitral valve appears normal. There is trace mitral valve regurgitation. There is trace mitral valve stenosis. Pulmonic Valve The pulmonic valve is likely normal. Tricuspid Valve There is trace tricuspid valve regurgitation. There is no evidence of pulmonary hypertension. Great Vessels The aortic arch is normal in size. There is moderate dilatation of the ascending aorta measuring 4.70 cm. Venous The inferior vena cava is normal in size and collapses greater than 50% with inspiration. Pericardium/Pleural There is no evidence of pericardial effusion. Prior Study Comparison No prior study available for comparison. Recommendations, Care & Conclusions No obvious valvular pathology seen on this study. Measurements 2D Linear Measurements IVSd: 0.89 0.6-0.9/0.6-1.0 cm LVIDd: 5.40 3.9-5.3/4.2-5.9 cm LVIDd Index: 2.65 2.4-3.2/2.2-3.1 cm/m2 LVIDs: 3.29 2.0-3.6 cm LVPWd: 0.87 0.7-1.1 cm LA Diam: 4.00 2.7-3.8/3.0-4.0 cm LAIDs Index: 1.96 1.5-2.3 cm/m2 LV Mass: 218.46 67-162/88-224 g LV Mass Index: 107.09 43-95/49-115 g/m2 LVOT Diam: 2.70 3.0+(-)1.3 cm 2D Systolic Function EF 4C: 62.00 >55% EF 2C: 64.70 >55% EF BiP: 63.20 >55% Mitral Valve MV Pk E: 0.44 MV PK A: 0.46 MV Decel Time: 271.00 E/A: 1.00 E'Lateral: 6.96 E'Medial: 5.22 E/E' Med: 8.40 E/E' Lat: 6.30 PHT: 79.00 MVA PHT: 2.78 Decel Emery: 1.63 Aortic Valve AoV Pk Jayme: 1.31 AoV Mn Jayme: 0.99 AoV VTI: 0.25 AoV Pk Grad: 7.00 Aov Mn Grad: 4.00 ANNA Cont.VTI: 5.20 LVOT LVOT Pk Jayme: 1.27 LVOT Mn Jayme: 0.79 LVOT VTI: 0.23 LVOT Pk Grad: 6.00 LVOT Mn Grad: 3.00 LVOT Diam: 2.70 LVOT Area: 5.73 Diastolic Function MV Pk E: 0.44 MV Pk A: 0.46 E/A: 1.00 E'Medial: 5.22 E/E' Med: 8.40 E' Laterial: 6.96 E/E' Lat: 6.30 Right Ventricle TAPSE (mm): 28.10 TVS' Jayme: 18.30 Tricuspid Valve TR Pk Jayme: 1.99 TR Pk Grad: 16.00 RA Press: 3.00 RVSP: 19.00 Great Vessels Aorta Sinus of Valsalva: 4.00 2.0-3.5 cm Ao Asc: 4.70 2.1-3.4 cm Ao Arch: 3.00 Pulmonary Veins Pulm Vein S/D 1.50 Pulmonary Valve PV Pk Jayme: 1.18 Peak PV Grad: 6.00 Updated in Other Vendor System with Status of Final Thang Silver MD electronically signed on 08/28/2024 3:13:56 PM with status of Final
== END ==
LOC: HO.CARD 09:18
PROVIDERS: PCP Internal Medicine; Visit Provider Internal Medicine
DX: I77.810 Thoracic aortic ectasia (principal)
CPT/HCPCS: 93306

== ENCOUNTER → 2024-08-27 09:42 | Outpatient (BNV) | payer MEDICARE, SELFPAY | PROVIDERS: PCP Internal Medicine; Visit Provider Internal Medicine | DX: I71.21 Aneurysm of the ascending aorta, without rupture (principal) | CPT/HCPCS: 93306 ==

== ENCOUNTER 2024-09-29 16:49 | Outpatient (AMB) | payer MEDICARE, SELFPAY ==
[2024-09-29 16:50] VITALS: BP 112/68; PULSE 86; O2SAT 97; BMI 24.5
--- NOTE | 2024-09-29 16:50 | MHC.PC.OV ---
Vital Signs 09/29/24 16:50 Height 6 ft Weight 181 lb BMI 24.5 BP 112/68 Blood Pressure Location Lt brachial Position Sitting Pulse 86 Pulse Source Pulse Oximeter Pulse Oximetry (%) 97 Oxygen Delivery Method Room Air Intake Visit Reasons: 4 month f/u Allergies lactose (Lactose) Allergy (Mild, Verified 09/29/24 16:50) U Medication List - Last Reconciled 09/29/24 by Ty Major MD blood sugar diagnostic (FreeStyle Lite Strips) As directed check the QD blood sugar diagnostic (OneTouch Ultra Test strips) As directed once per day empagliflozin 25 mg PO DAILY lancets (OneTouch Delica Plus Lancet) As directed once per day lisinopril-hydrochlorothiazide 20-12.5 mg 1 tab PO DAILY metformin 500 mg PO BID 90 days simvastatin 20 mg PO QPM Tobacco use date assessed: 05/29/24 Fall risk assessment: No Falls in past year Last assessed Fall Risk: 09/29/24 Dental Screening Dental Screen Date: 05/29/24 [facility] Medical History History of tuberculosis Colon cancer screening Overweight (BMI 25.0-29.9) Hypercholesterolemia Hypertension Type 2 diabetes mellitus with hyperglycemia Surgical History H/O colonoscopy H/O toe surgery H/O wrist surgery History of surgery on arm Social History Housing: House Alcohol intake: never Patient Tobacco Use Status: Former Tobacco user Tobacco use type: Cigarette Cigarette Packs Per Day: 1 Cigarettes Per Day: 20.0 Years Smoked: 14 e-Cigarette/Vaping Use: Never Used Second Hand Smoke Exposure: No Current occupational status: unemployed and retired Cognitive needs: No Hearing needs: No Vision needs: Yes Questionnaire PHQ-9 Over the last 2 weeks, how often have you been bothered by any of the following problems? 1. Little interest or pleasure in doing things: nearly every day 2. Feeling down, depressed, or hopeless: not at all 3. Trouble falling or staying asleep, or sleeping too much: not at all 4. Feeling tired or having little energy: not at all 5. Poor appetite or overeating: not at all 6. Feeling bad about yourself - or that you are a failure or have let yourself or your family down: not at all 7. Trouble concentrating on things, such as reading the newspaper or watching television: not at all 8. Moving or speaking so slowly that other people could have noticed. Or the opposite - being so fidgety or restless that you have been moving around a lot more than usual: not at all 9. Thoughts that you would be better off or of hurting yourself in some way: not at all Total score: 3 Depression Screening Interpretation: Positive Depression Screening Done: Yes Source: Developed by Drs. Junior Royal, Makayla Walker, Higinio Cobb and colleagues, with an educational stephen from [employer]. Thrive Questionnaire Date Thrive assessed: 06/05/24 I am a: Patient What is your living situation today?: I have a steady place to live Within the past 12 months, did the food you bought not last and you didn't have the money to get more?: Often true Within the past 12 months, did you worry whether your food would run out before you got money to buy more?: Often true Do you have trouble paying for medicines?: No Do you have trouble getting transportation to medical appointments?: No Do you have trouble paying your heating and electricity bill?: No Do you have trouble taking care of your child, family member or friend?: No Do you have trouble with day-to-day activities such as bathing, preparing meals, shopping, managing finances, etc.?: No Are you currently unemployed and looking for a job?: No Are you interested in more education?: No Please select the resources that you would like help with: None Currently or been in a relationship where the following occur: I choose not to answer THRIVE Score: 2 AUDIT C Alcohol Use Questionnaire (AUDIT-C) 1. How often do you have a drink containing alcohol?: Never 3. How often do you have six or more drinks on one occasion?: Never Total Score: 0 ABEL-7 AMB Questionnaire ABEL-7 Date ABEL - 7 assessed: 06/05/24 Feeling nervous, anxious, or on edge: 0 = Not at all Not being able to stop or control worryin = Not at all Worrying too much about different things: 0 = Not at all Trouble relaxin = Not at all Being so restless that it is hard to sit still: 0 = Not at all Becoming easily annoyed or irritable: 0 = Not at all Feeling afraid as if something awful might happen: 0 = Not at all Total ABEL-7 score (0-4 normal; 5-9 mild; 10-14 moderate; 15-21 severe): 0 Source: Developed by Drs. Junior Royal, Makayla Walker, Higinio Cobb and colleagues, with an educational stephen from [employer]. Physical exam (Primary Care) Vital Signs: Last Vital Signs Pulse 86 09/29/24 16:50 BP 112/68 09/29/24 16:50 Pulse Ox 97 09/29/24 16:50 Oxygen Delivery Method Room Air 09/29/24 16:50 BMI result Body Mass Index 24.5 Tobacco/Smoking Status: Tobacco use Status Tobacco use date assessed 05/29/24 09/29/24 16:51 Patient Tobacco Use Status Former Tobacco user 09/29/24 16:51 Tobacco use type Cigarette 09/29/24 16:51 e-Cigarette/Vaping Use Never Used 09/29/24 16:51 PHQ-9: PHQ-9 Score PHQ-9: Total score 3 09/29/24 17:05 Depression Screening Interpretation: Positive Thrive Assessment: Date of Thrive Assessment Date Thrive assessed 06/05/24 09/29/24 16:51 Currently or been in a relationship where the following occur: I choose not to answer Const General: alert; No acute distress Eyes Conjunctivae: conjunctivae normal Resp Auscultation: clear to auscultation bilaterally Cardio Rate: regular rate Rhythm: regular rhythm GI Inspection: Yes normal to inspection Extrem General: Yes normal to inspection and No edema Results AMB Hemoglobin A1c AMB Hemoglobin A1c 7.2 % Last Edit by Latoya Connelly CMA on 09/29/24 17:06 Results Reviewed Results Reviewed: Laboratory Last Values Hgb A1c (Clinic) 7.2 % (4.0-6.0) H 09/29/24 16:51 Coding Level of Care Code Est Pt Level 4 (97356) Complex EM visit Add On G2211 Diagnoses Ascending aorta dilatation I77.810 Hypercholesterolemia E78.00 Primary hypertension I10 Hypertension type: primary hypertension Type 2 diabetes mellitus with hyperglycemia, without long-term current use of insulin E11.65 Diabetes mellitus senior living insulin use: without long term care pharmacist use Left arm numbness R20.0 Assessment & Plan Assessment & Plan (1) Ascending aorta dilatation: Comment: CT scan December 2023No abnormality seen along the left medial diaphragm. No hiatal hernia. Six-month groundglass nodule right upper lobe. Two pleural-based 4 mm nodules right upper lobe adjacent to each other. Recommend follow-up in 6 months as low-dose CT. Aneurysmal dilatation of ascending aorta. August 2024The left ventricular systolic function is normal. The calculated ejection fraction is 63% by biplane method. - No obvious valvular pathology seen on this study. - There is moderate dilatation of the ascending aorta measuring 4.70 cm. Code(s): I77.810 - Thoracic aortic ectasia Category: Medical Plan: August 2024 last echocardiogram showing 4.7 cm (2) Hypercholesterolemia: Code(s): E78.00 - Pure hypercholesterolemia, unspecified Category: Medical Plan: Avoid fried foods, chicken skin, eggs, butter margarine, pastries and meat. Be it pork or beef they have a lot of cholesterol LDL goal of less than 100 and triglyceride of less than 150. Patient on simvastatin 20 mg once a day (3) Hypertension: Code(s): I10 - Essential (primary) hypertension Category: Medical Qualifiers: Hypertension type: primary hypertension Qualified Code(s): I10 - Essential (primary) hypertension Plan: Continue with blood pressure medication. Decrease salt intake and exercise on lisinopril hydrochlorothiazide (4) Type 2 diabetes mellitus with hyperglycemia: Comment: 2020 eye [facility], My EYEDR 10/2022 Code(s): E11.65 - Type 2 diabetes mellitus with hyperglycemia Category: Medical Qualifiers: Diabetes mellitus senior living insulin use: without long term care pharmacist use Qualified Code(s): E11.65 - Type 2 diabetes mellitus with hyperglycemia Plan: Decrease the amount of carbohydrate intake, pasta, bread, rice and potatoes are all sugar and that is aside from all the sweet stuff, remember that fruits are good but they are Sweet also. Patient on metformin 500 mg twice a day and Jardiance 10 mg once a day (5) Left arm numbness: Code(s): R20.0 - Anesthesia of skin Category: Medical Plan History of Present Illness The patient is a 73-year-old male presenting with the management of chronic conditions including diabetes mellitus, hypertension, and hypercholesterolemia. The patient has a history of diabetes mellitus with a recent hemoglobin A1c of 7.2, which is an improvement from a previous level of 9.0 in May. He is currently on metformin 500 mg twice a day and Jardiance 10 mg once a day, with plans to increase the Jardiance dose to 25 mg. Hypertension is managed with lisinopril and hydrochlorothiazide. The patient has hypercholesterolemia with a last LDL measurement of 110 mg/dL in August 2023. He is on simvastatin 20 mg once a day, with a goal to reduce LDL to less than 100 mg/dL. The patient has a history of tubular adenoma of the colon, with the last colonoscopy performed in February 2022. Pulmonary nodules have been noted, though further details were not discussed. The patient has an ascending aortic dilatation measuring 4.7 cm, identified on a recent echocardiogram with an ejection fraction of 63%. He is awaiting a cardiology appointment for further evaluation. 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 - Exercise: Does not engage in formal exercise but remains active through work Review of Systems - Cardiovascular: Denies chest pain, reports intermittent numbness in the shoulder area - Neurological: Reports intermittent numbness in the shoulder area Physical Exam - Cardiovascular: Heart auscultation performed, no specific findings noted Results - Echocardiogram: Ejection fraction 63%, ascending aortic dilatation 4.7 cm - Hemoglobin A1c: 7.2 in recent test, improved from 9.0 in May - LDL Cholesterol: 110 mg/dL in August 2023 Plan The management plan for diabetes includes increasing the dose of Jardiance to 25 mg to better control blood glucose levels, with a target hemoglobin A1c below 7.0. The patient is advised to continue metformin 500 mg twice a day and to monitor blood glucose levels regularly. For hypertension, the patient is to continue with lisinopril and hydrochlorothiazide, with regular monitoring of blood pressure to ensure control. In terms of hypercholesterolemia, the patient is to maintain simvastatin 20 mg daily, with a goal to reduce LDL cholesterol to below 100 mg/dL. The patient is awaiting a cardiology appointment for further evaluation of the ascending aortic dilatation, and a stress test is recommended due to reported intermittent numbness in the shoulder area. A follow-up appointment is scheduled in three months to reassess the patient's condition and adjust treatment plans as necessary. Patient was informed and verbally consented to the use of an ambient scribe for clinic note documentation during this visit. Discussion Notes I discussed with the patient the importance of managing diabetes, hypertension, and hypercholesterolemia to prevent complications. We reviewed the need to increase Jardiance to 25 mg and maintain current medications for hypertension and cholesterol. I explained the significance of the ascending aortic dilatation and the need for cardiology follow-up and a stress test. The patient was advised to have regular blood work and follow up in three months. Patient Instructions - Take Jardiance 25 mg as prescribed to help control blood sugar levels. - Continue taking metformin 500 mg twice a day. - Monitor blood pressure regularly and continue lisinopril and hydrochlorothiazide. - Maintain simvastatin 20 mg daily to manage cholesterol levels. - Schedule and attend the cardiology appointment for further evaluation of the aortic dilatation. - Complete the stress test as recommended. - Follow up in three months for reassessment. Orders: Orders CA stress test Today R20.0 - Anesthesia of skin AMB Hemoglobin A1c Today Z13.9 - Encounter for screening, unspecified Referrals Vascular Surgery Referral I77.810 - Thoracic aortic ectasia Medications: Changed From empagliflozin (Jardiance) 10 mg PO DAILY 30 tabs 3RF E11.65 - Type 2 diabetes mellitus with hyperglycemia To empagliflozin 25 mg PO DAILY 30 tabs 2RF E11.65 - Type 2 diabetes mellitus with hyperglycemia
--- OUTSIDE RECORDS SUMMARY | 2024-09-29 16:51 | XMS_ITS | Clinical Summary ---
Author Organization [employer] Address [address] [place] [address] [address] [place] [address] Care Team Providers Care Editor Publications Name Role Phone Liset Greenwood MD Primary Care Provider [phone] Medications glimepiride (Amaryl) 2 MG tablet TAKE [...] LDL-C. Evan SS et al. ANGIE. 2013;310(19): 6895-6385 (http://education.[employer]/faq/SWK003) Non-HDL Cholesterol 94 <130 mg/dL (calc) [facility] Comment: For patients with diabetes plus 1 major ASCVD risk factor, treating to a non-HDL-C goal of <100 mg/dL (LDL-C of <70 mg/dL) is considered a therapeutic option. Triglycerides 156(H) <150 mg/dL [facility] 03/22/2020 9:37 AM EST us Liset Greenwood MD LAB BLOOD ORDERABLES Final Result [facility] [address] from Last 3 Months or Most Recently Relevant to Health Maintenance Care Teams Editor Publications Relationship Specialty Start Date End Date Liset Greenwood MD [address] [place] [id number] PCP - General Internal Medicine 05/16/18
== END 2024-09-29 17:24 | disposition home or self-care (01) ==
LOC: HO.HMCH 16:49
PROVIDERS: PCP Internal Medicine; Visit Provider Internal Medicine
DX: I77.810 Thoracic aortic ectasia (principal); E78.00 Pure hypercholesterolemia, unspecified; I10 Essential (primary) hypertension; E11.65 Type 2 diabetes mellitus with hyperglycemia; R20.0 Anesthesia of skin; Z13.9 Encounter for screening, unspecified

== ENCOUNTER → 2024-09-29 16:49 | Outpatient (BNVA) | payer MEDICARE, SELFPAY | PROVIDERS: PCP Internal Medicine; Visit Provider Internal Medicine | DX: E11.65 Type 2 diabetes mellitus with hyperglycemia (principal); I77.810 Thoracic aortic ectasia; E78.00 Pure hypercholesterolemia, unspecified; I10 Essential (primary) hypertension; R20.0 Anesthesia of skin; Z79.84 Long term (current) use of oral hypoglycemic drugs | CPT/HCPCS: 83036; 96127; 99212 ==